=== PATIENT | female | born 1945 | race Caucasian/White ===

== ENCOUNTER 2025-01-14 14:29 | Inpatient (IN) ==
--- NOTE | 2025-01-14 14:44 | Emergency Department Note ---
Impression & Plan Syncope and collapse, Sinus pause, Anemia ED Provider Note NAME: YOHANNES GONSALEZ AGE: 79 SEX: F : 1945 ARRIVES VIA: Ambulance INFORMANT: Patient ED PROVIDER(S): Chester Funez DO CHIEF COMPLAINT: Syncope HPI: Patient is a 79-year-old female who presents to the ER for syncopal episode x 3. She passed out prior to EMSs arrival and then when they got there prior to getting her on the monitor she passed out again. They are able to get her on the monitor and on the ride and she passed out again. They were unable to print out a rhythm strip or an EKG at this time but they did note that she bradycardia down. Patient denies any chest pain or shortness of breath preceding or following this event. Denies any headache or change in vision. No belly pain. No nausea, vomiting, or diarrhea. No dysuria, urgency, or frequency. No other exacerbating or remitting factors. ADDITIONAL HISTORY OBTAINED: Per HPI Chronic Medical/Social Conditions Affecting Care: Per HPI PAST MEDICAL HISTORY:See Below PAST SURGICAL HISTORY:See Below FAMILY HISTORY:See Below SOCIAL HISTORY:See Below HOME MEDICATIONS:See Below ALLERGIES:See Below VITALS:See Below PHYSICAL EXAMINATION: GENERAL: Sitting up in bed, alert, well appearing, well nourished, no distress, non-toxic EYE EXAM: normal conjunctiva. PERRL and EOM's grossly intact. OROPHARYNX: no exudate, no erythema, lips, buccal mucosa, and tongue normal and mucous membranes are moist NECK: supple, no nuchal rigidity, no adenopathy, non-tender LUNGS: Clear to auscultation. Normal chest wall mechanics HEART: no murmurs, S1 normal and S2 normal ABDOMEN: abdomen soft, non-tender, normo-active bowel sounds, no masses, no rebound or guarding. UPPER EXTREMITIES: upper extremities are grossly normal. LOWER EXTREMITIES: No pitting edema. NEURO EXAM: Normal sensorium, cranial nerves II-XII intact, normal speech, no weakness of arms, no weakness of legs. No drift. Finger to nose intact. Gross sensation intact. MEDICAL DECISION MAKING: Patient is a 79-year-old female who presents ER for above-stated complaint. IV was established and blood work was obtained. Labs show mild leukocytosis 11.7. Mild anemia 11.2. BMP with creatinine 1.5. LFTs and bilirubin were unremarkable. Troponin negative. Lipase negative. On the monitor patient appeared to have a sinus pause of about 6 seconds. This was placed on the chart. Did contact cardiology and they were made aware. She remained hemodynamically stable but did become diaphoretic at this time and lightheaded. Patient remained on the pads. Discussed case with the hospitalist for further evaluation management treatment. She was given IV fluids while in the ER. Consults/Care Managements Discussions: Per [facility] Triage Nursing notes reviewed. Limited review of prior medical records performed Vital Signs: reviewed and remarkable for no significant abnormalities Differential diagnosis: Differential diagnosis includes etiologies such as vasovagal event, infection, hypoglycemia, electrolyte abnormalities, cardiac sources, intracerebral event, toxicologic, neurologic, as well as others were entertained. ER treatment provided: See below Diagnostics interpreted by me include EKG and cardiac monitoring as listed below: -Cardiac Monitoring: An order was placed for continuous cardiac monitoring. The monitor shows a rate of 60 with sinus rhythm. -ECG: Sinus rhythm rate of 57 Normal axis No PVCs T wave inversion lead III QTc 492 -Laboratory studies:Interpreted by me as stated above in MDM and shown below. Imaging studies: Xrays: As interpreted by me: Portable AP upright 1 view of the chest shows no focal Lutrate CTs show: none Procedures:none Critical Care: None Past Med/Surg History Problem List (Updated 01/14/25 @ 20:08 by Chester Funez DO) Anemia (Acute) Sinus pause (Acute) GERD (gastroesophageal reflux disease) Hyperlipidemia LDL goal <100 Diabetes mellitus Renal insufficiency Dementia Hypertension Bradycardia with 41-50 beats per minute Syncope and collapse (Acute) Social History Smoking Status: Never smoker Hx Alcohol Use: Yes Alcohol type: wine Hx Substance Use: No Preferred Language: Vietnamese Communication Ability: Effective French Binder Required: No 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 Beliefs: Christianity- asking for preist to visit Current Living Situation: Family Current Living Situation Comment: Lives with Son Augustin Feels Safe at Home: Yes Assistive Devices: Cane Allergies Allergies Allergy/AdvReac Type Severity Reaction Status Date / Time No Known Allergies Allergy Verified 01/14/25 15:03 Home Meds Home Medications Medication Instructions Recorded Confirmed donepezil 5 mg tablet 5 mg PO HS 01/14/25 01/14/25 ferrous sulfate 325 mg (65 mg 325 mg PO DAILY 01/14/25 01/14/25 iron) tablet folic acid 1 mg tablet 1 mg PO DAILY 01/14/25 01/14/25 ibuprofen 200 mg tablet 400 mg PO Q6H PRN Pain 01/14/25 01/14/25 insulin glargine 100 unit/mL (3 18 unit subcut BID 01/14/25 01/14/25 mL) subcutaneous pen (Lantus Solostar U-100 Insulin) lisinopril 10 mg tablet 10 mg PO DAILY 01/14/25 01/14/25 metformin 500 mg tablet 500 mg PO DAILY 01/14/25 01/14/25 metoprolol succinate 50 mg 50 mg PO DAILY 01/14/25 01/14/25 tablet,extended release 24 hr omeprazole 40 mg capsule,delayed 40 mg PO DAILY 01/14/25 01/14/25 release simvastatin 10 mg tablet 10 mg PO DAILY 01/14/25 01/14/25 Results & Data (ED) Vital Signs Vital Signs - 24 hr 01/14/25 14:25 01/14/25 15:05 01/14/25 15:24 Pulse Rate 52 L 51 L 0 L Respiratory Rate 18 Blood Pressure 127/59 L Blood Pressure Mean 81 Pulse Oximetry 95 Oxygen Delivery Method Room Air Sepsis Recent Fever Within 48 Hours No Sepsis New/Unexplained Change in Mental Status No Sepsis Action Taken by Nursing No Action Required 01/14/25 15:36 Pulse Rate 56 L Respiratory Rate Blood Pressure Blood Pressure Mean Pulse Oximetry Oxygen Delivery Method Sepsis Recent Fever Within 48 Hours Sepsis New/Unexplained Change in Mental Status Sepsis Action Taken by Nursing Laboratory Data 01/14/25 14:41 01/14/25 14:41 Lab Results 01/14/25 Range/Units 14:41 WBC 11.71 H (4.8-10.8) K/ul RBC 3.65 L (4.20-5.40) M/uL Hgb 11.2 L (12.0-16.0) g/dl Hct 33.4 L (37.0-47.0) % MCV 91.5 (80.0-100.0) fL MCH 30.7 (25.0-34.0) pg MCHC 33.5 (32.0-36.0) g/dL RDW Std Deviation 45.2 (36.4-46.3) fL RDW Coeff of Ranjit 13.6 (11.5-14.5) % Plt Count 270 (130-400) K/uL MPV 9.7 (9.4-12.4) fL Immature Gran % (Auto) 0.4 % Neut % (Auto) 80.3 % Lymph % (Auto) 16.2 % [place] % (Auto) 2.8 % Eos % (Auto) 0.0 % Baso % (Auto) 0.3 % Neut # (Auto) 9.40 H (1.40-6.50) K/uL Lymph # (Auto) 1.90 (1.20-3.40) K/uL [place] # (Auto) 0.33 (0.11-0.59) K/uL Eos # (Auto) 0.00 (0.00-0.50) K/uL Baso # (Auto) 0.03 (0.00-0.20) K/uL Immature Gran # (Auto) 0.05 (0.01-0.20) K/uL Sodium 136 (136-145) mmol/L Potassium 4.0 (3.5-5.1) mmol/L Chloride 105 (98-107) mmol/L Carbon Dioxide 20 L (21-32) mmol/L Anion Gap 11 (3-11) BUN 52 H (6-23) mg/dl Creatinine 1.52 H (0.6-1.2) mg/dl Est Cr Clr Drug Dosing 25.2 ml/min eGFR 34.89 BUN/Creatinine Ratio 34.2 H (10-20) Glucose 254 H (70-99(Fasting)) mg/dl Calcium 10.4 H (8.6-10.3) mg/dl Total Bilirubin 0.3 (0.2-1.0) mg/dl AST 19 (13-39) U/L ALT 13 (7-52) U/L Alkaline Phosphatase 69 (34-104) U/L Troponin I High Sens 6.1 (0-14) pg/ml Total Protein 7.4 (6.0-8.3) gm/dl Albumin 3.9 (3.4-5.0) gm/dl Globulin 3.5 (2.5-4.0) gm/dl Albumin/Globulin Ratio 1.1 (0.9-2) Lipase 5 L (11-82) U/L Administered Medications Sodium Chloride (Nss) 1,000 mls @ 80 mls/hr IV .[id number] JONNATHAN Stop: 01/15/25 04:44 Last Admin: 01/14/25 16:17 Dose: 80 mls/hr Documented By: CTK Discontinued Medications Sodium Chloride (Nss) 1,000 mls @ 999 mls/hr IV .[id number] ONE Stop: 01/14/25 15:38 Last Infusion: 01/14/25 16:15 Dose: Infused Documented By: Admin: 01/14/25 14:57 Dose: 999 mls/hr Documented By: QGV Imaging Data Radiologist's Impression: Chest X-Ray 01/14/25 14:38 Chest radiograph, one view History: Chest pain Comparison: None Findings: Single AP view of the chest performed. No focal consolidation or pleural effusion. No pneumothorax. The cardiomediastinal silhouette is within normal limits. Normal pulmonary vascularity. No evidence for lymphadenopathy. No visualized bony or soft tissue abnormality. Impression: Normal chest radiograph Electronically signed by Markie Baez 01-14-2025 3:16 PM Discharge Plan Visit Data Chief Complaint: Syncope ED Provider: Chester Funez Discharge Problem: Syncope and collapse, Sinus pause, Anemia Patient Disposition: Admitted As Inpatient Condition: Fair Discharge Instructions Interventions: ED Discharge Assessment Last Done: 01/14/25 17:38 Discharge Problem: Anemia Qualifiers: Anemia type: unspecified type Qualified Code(s): D64.9 - Anemia, unspecified
[2025-01-14 14:56] LABS: Hematocrit (blood only) 33.4 % (37.0-47.0); Hemoglobin 11.2 g/dl (12.0-16.0); Immature Granulocytes # (auto) 0.05 K/uL (0.01-0.20); Immature Granulocytes % (auto) 0.4 %; Mean Corpuscular Hemoglobin 30.7 pg (25.0-34.0); Mean Corpuscular Volume 91.5 fL (80.0-100.0); Platelet Count 270 K/uL (130-400); RDW Standard Deviation 45.2 fL (36.4-46.3); Red Blood Count 3.65 M/uL (4.20-5.40); White Blood Count 11.71 K/ul (4.8-10.8)
[2025-01-14] MEDS: SODIUM CHLORIDE 0.9% 1,000 ML IV ONE (14:57)
[2025-01-14 15:14] LABS: Alanine Aminotransferase 13.0 U/L (7-52); Albumin Globulin Ratio 1.1 (0.9-2); Alkaline Phosphatase 69.0 U/L (34-104); Anion Gap 11.0 (3-11); Bilirubin,Total 0.3 mg/dl (0.2-1.0); Blood Urea Nitrogen 52.0 mg/dl (6-23); Calcium 10.4 mg/dl (8.6-10.3); Carbon Dioxide 20.0 mmol/L (21-32); Chloride 105.0 mmol/L (98-107); Creatinine Clr Calc Pharmacy 25.2 ml/min; Globulin 3.5 gm/dl (2.5-4.0); Glucose 254.0 mg/dl (70-99(Fasting)); Lipase 5.0 U/L (11-82); Potassium 4.0 mmol/L (3.5-5.1); Sodium 136.0 mmol/L (136-145); Total Protein 7.4 gm/dl (6.0-8.3)
--- NOTE | 2025-01-14 15:16 | XRay Report ---
Chest radiograph, one view History: Chest pain Comparison: None Findings: Single AP view of the chest performed. No focal consolidation or pleural effusion. No pneumothorax. The cardiomediastinal silhouette is within normal limits. Normal pulmonary vascularity. No evidence for lymphadenopathy. No visualized bony or soft tissue abnormality. Impression: Normal chest radiograph Electronically signed by Markie Baez 01-14-2025 3:16 PM
--- NOTE | 2025-01-14 16:13 | History & Physical Report ---
Date of Service January 14, 2025 Assessment & Plan (1) Syncope and collapse: (2) Bradycardia with 41-50 beats per minute: (3) Hypertension: (4) Dementia: (5) Renal insufficiency: Plan Patient is a 79-year-old female with past medical history including dementia, iron deficiency, diabetes mellitus, hypertension, GERD, and hyperlipidemia. She presents to the emergency department after having 2 syncopal episodes at a family reunion this afternoon, and 1 episode en route to the hospital. While in the emergency department she has had heart rates in the 30s to 50s. She did take her dosing of metoprolol succinate 50 mg every morning this morning. It is unknown if she has had previous episodes of syncope, however, family was with her today, reports this is the first that they are aware of. Syncope and collapse- Patient had 2 episodes at a family reunion this afternoon, and 1 episode en route to the ED. She was noted to have a rhythm strip which showed significant bradycardia, and had pacer pads placed. The patient will be admitted to telemetry for serial cardiac enzymes, serial EKG's, cardiac rhythm monitoring and a 2-D echocardiogram with Dopplers. Continue pacer pads Hold metoprolol succinate 50 mg daily Consult cardiology Renal insufficiency- Creatinine 1.52 with unknown baseline Hold lisinopril and ibuprofen Place on NSS at 80 mL/h x 1 L Repeat laboratories in a.m. Diabetes mellitus- Change glargine from 18 to 14 units SQ twice daily Hold metformin Placed on Accu-Cheks with NovoLog SSI Dementia- Continue donepezil History of Present Illness Chief Complaint: The patient is brought to the emergency department via EMS, after having syncopal episodes x 2 at a family reunion this afternoon, and then 1 episode en route to the hospital. She did have a rhythm strip which showed significant bradycardia, and has had pacer pads placed. Family was in attendance, reports that this is the first witnessed episode that they are aware of. She denies any head trauma, and any other body parts that may have been injured. He did take her usual dosing of metoprolol succinate 50 mg this morning. He is also noted to have chronic kidney disease, but unknown creatinine at this time. She also reports having taken her usual dose of insulin glargine this morning as well. Primary Care Provider: Manas Myers II, PA-C Patient is a 79-year-old female with past medical history including dementia, iron deficiency, diabetes mellitus, hypertension, GERD, and hyperlipidemia. She presents to the emergency department after having 2 syncopal episodes at a family reunion this afternoon, and 1 episode en route to the hospital. While in the emergency department she has had heart rates in the 30s to 50s. She did take her dosing of metoprolol succinate 50 mg every morning this morning. It is unknown if she has had previous episodes of syncope, however, family was with her today, reports this is the first that they are aware of. Allergies Allergy/AdvReac Type Severity Reaction Status Date / Time No Known Allergies Allergy Verified 01/14/25 15:03 Home Medications Medication Instructions Recorded Confirmed Type donepezil 5 mg tablet 5 mg PO HS 01/14/25 01/14/25 History ferrous sulfate 325 mg (65 mg 325 mg PO DAILY 01/14/25 01/14/25 History iron) tablet folic acid 1 mg tablet 1 mg PO DAILY 01/14/25 01/14/25 History ibuprofen 200 mg tablet 400 mg PO Q6H PRN Pain 01/14/25 01/14/25 History insulin glargine 100 unit/mL (3 18 unit subcut BID 01/14/25 01/14/25 History mL) subcutaneous pen (Lantus Solostar U-100 Insulin) lisinopril 10 mg tablet 10 mg PO DAILY 01/14/25 01/14/25 History metformin 500 mg tablet 500 mg PO DAILY 01/14/25 01/14/25 History metoprolol succinate 50 mg 50 mg PO DAILY 01/14/25 01/14/25 History tablet,extended release 24 hr omeprazole 40 mg capsule,delayed 40 mg PO DAILY 01/14/25 01/14/25 History release simvastatin 10 mg tablet 10 mg PO DAILY 01/14/25 01/14/25 History Past Med/Surg History Problem List (Updated 01/14/25 @ 16:09 by Gianluca Ferraro MD) GERD (gastroesophageal reflux disease) Hyperlipidemia LDL goal <100 Diabetes mellitus Renal insufficiency Dementia Hypertension Bradycardia with 41-50 beats per minute Syncope and collapse Social History Smoking Status: Never smoker Preferred Language: [place]se Feels Safe at Home: Yes Review of Systems Review of Systems: The patient denies chest pain, palpitations, shortness of breath, dyspnea on exertion, cough, lower extremity swelling, sore throat, fevers, chills, sweats, weight change, fatigue, nausea, vomiting, diarrhea , constipation, abdominal pain, pelvic pain, blood in urine or stool, dysuria, urinary frequency or urgency, lightheadedness, dizziness, headache, rash, abnormal bruising or bleeding, imbalance, focal weakness, numbness or tingling in arms or legs, generalized arthralgias or myalgias, back or neck pain, or night sweats. The review of systems is otherwise negative other than for that already noted above, and at least 10 systems have been reviewed. Physical Exam Physical Exam: The patient is awake, alert and oriented 3, well developed and well nourished, normocephalic and atraumatic, lying in bed and in no acute distress. HEENT--PERRL, EOMI, mucous membranes and oropharynx mildly dry. Neck--supple. No JVD. No bruits. Thyroid normal, trachea midline, no adenopathy. Heart--bradycardia with occasional premature contractions Lungs--clear bilaterally, no respiratory distress, no accessory muscle use. Abdomen--normal bowel sounds and soft. Nontender. Nondistended 5. Extremities--no cyanosis or clubbing. No edema. There are good distal pulses b/l. Dermatologic--normal skin turgor, normal color, no abnormal lymph nodes, no rash. Neurologic--cranial nerves II through XII grossly intact. Rheumatologic--normal range of motion. Psychiatric--normal affect. Results & Data Results & Data Vital Signs (Past 12 Hours) Vital Signs Pulse Resp BP Pulse Ox O2 Del Method 01/14/25 15:36 56 L 01/14/25 15:24 0 L 01/14/25 15:05 51 L 01/14/25 14:25 52 L 18 127/59 L 95 Room Air Laboratory Results Laboratory Results WBC 11.71 K/ul (4.8-10.8) H 01/14/25 14:41 RBC 3.65 M/uL (4.20-5.40) L 01/14/25 14:41 Hgb 11.2 g/dl (12.0-16.0) L 01/14/25 14:41 Hct 33.4 % (37.0-47.0) L 01/14/25 14:41 MCV 91.5 fL (80.0-100.0) 01/14/25 14:41 MCH 30.7 pg (25.0-34.0) 01/14/25 14:41 MCHC 33.5 g/dL (32.0-36.0) 01/14/25 14:41 RDW Std Deviation 45.2 fL (36.4-46.3) 01/14/25 14:41 RDW Coeff of Ranjit 13.6 % (11.5-14.5) 01/14/25 14:41 Plt Count 270 K/uL (130-400) 01/14/25 14:41 MPV 9.7 fL (9.4-12.4) 01/14/25 14:41 Immature Gran % (Auto) 0.4 % 01/14/25 14:41 Neut % (Auto) 80.3 % 01/14/25 14:41 Lymph % (Auto) 16.2 % 01/14/25 14:41 [place] % (Auto) 2.8 % 01/14/25 14:41 Eos % (Auto) 0.0 % 01/14/25 14:41 Baso % (Auto) 0.3 % 01/14/25 14:41 Neut # (Auto) 9.40 K/uL (1.40-6.50) H 01/14/25 14:41 Lymph # (Auto) 1.90 K/uL (1.20-3.40) 01/14/25 14:41 [place] # (Auto) 0.33 K/uL (0.11-0.59) 01/14/25 14:41 Eos # (Auto) 0.00 K/uL (0.00-0.50) 01/14/25 14:41 Baso # (Auto) 0.03 K/uL (0.00-0.20) 01/14/25 14:41 Immature Gran # (Auto) 0.05 K/uL (0.01-0.20) 01/14/25 14:41 Sodium 136 mmol/L (136-145) 01/14/25 14:41 Potassium 4.0 mmol/L (3.5-5.1) 01/14/25 14:41 Chloride 105 mmol/L (98-107) 01/14/25 14:41 Carbon Dioxide 20 mmol/L (21-32) L 01/14/25 14:41 Anion Gap 11 (3-11) 01/14/25 14:41 BUN 52 mg/dl (6-23) H 01/14/25 14:41 Creatinine 1.52 mg/dl (0.6-1.2) H 01/14/25 14:41 Est Cr Clr Drug Dosing 25.2 ml/min 01/14/25 14:41 eGFR 34.89 01/14/25 14:41 BUN/Creatinine Ratio 34.2 (10-20) H 01/14/25 14:41 Glucose 254 mg/dl (70-99(Fasting)) H 01/14/25 14:41 Calcium 10.4 mg/dl (8.6-10.3) H 01/14/25 14:41 Total Bilirubin 0.3 mg/dl (0.2-1.0) 01/14/25 14:41 AST 19 U/L (13-39) 01/14/25 14:41 ALT 13 U/L (7-52) 01/14/25 14:41 Alkaline Phosphatase 69 U/L (34-104) 01/14/25 14:41 Troponin I High Sens 6.1 pg/ml (0-14) 01/14/25 14:41 Total Protein 7.4 gm/dl (6.0-8.3) 01/14/25 14:41 Albumin 3.9 gm/dl (3.4-5.0) 01/14/25 14:41 Globulin 3.5 gm/dl (2.5-4.0) 01/14/25 14:41 Albumin/Globulin Ratio 1.1 (0.9-2) 01/14/25 14:41 Lipase 5 U/L (11-82) L 01/14/25 14:41 Impressions Chest X-Ray 01/14/25 14:38 Chest radiograph, one view History: Chest pain Comparison: None Findings: Single AP view of the chest performed. No focal consolidation or pleural effusion. No pneumothorax. The cardiomediastinal silhouette is within normal limits. Normal pulmonary vascularity. No evidence for lymphadenopathy. No visualized bony or soft tissue abnormality. Impression: Normal chest radiograph Electronically signed by Markie Baez 01-14-2025 3:16 PM Code Status & VTE Plan Code Status Full code VTE Prophylaxis Plan VTE Prophylaxis will be ordered: Yes PG Care Time/CCT Total # of Minutes Spent Total Time Spent with Patient: Total time spent is greater than 50% in coordination of care (as documented) at patient's floor/unit and/or counseling patient: Coding Level of Care Code 41950 INT INP/OBS CARE 3/75MIN Diagnoses Syncope and collapse R55 Bradycardia with 41-50 beats per minute R00.1 Hypertension I10 Dementia F03.90 Renal insufficiency N28.9
[2025-01-14] MEDS: SODIUM CHLORIDE 0.9% 1,000 ML IV SCH (16:17)
[2025-01-14] MEDS ORDERED: GLUCOSE 40% GEL 15 GM TUBE PO PRN (18:02)
[2025-01-14] MEDS ORDERED: GLUCOSE 10 TAB/TUBE PO PRN (18:02)
[2025-01-14] MEDS ORDERED: DEXTROSE 50% 50 ML SYRINGE IV PRN (18:02)
[2025-01-14] MEDS ORDERED: GLUCAGON FOR INJ 1 MG VIAL SQ PRN (18:02)
[2025-01-14] MEDS ORDERED: CARBOHYDRATES FOR HYPOGLYCEMIA PO PRN (18:02)
[2025-01-14] MEDS: INSULIN ASPART PER UNIT CHARGE SC SCH (20:17)
[2025-01-14] MEDS: LANTUS PER UNIT CHARGE SC SCH (20:17)
[2025-01-14] MEDS ORDERED: LANTUS PER UNIT CHARGE SC SCH (21:00)
[2025-01-14] MEDS ORDERED: NON-FORMULARY MEDICATION (Insulin Glargine [Lantus Solostar U-100 Insulin] 100 unit/mL (3 SQ SCH (21:00)
[2025-01-14] MEDS ORDERED: DONEPEZIL HCL 5 MG TAB PO SCH (21:00)
[2025-01-15 06:07] LABS: Hematocrit (blood only) 27.8 % (37.0-47.0); Hemoglobin 9.3 g/dl (12.0-16.0); Mean Corpuscular Hemoglobin 30.9 pg (25.0-34.0); Mean Corpuscular Volume 92.4 fL (80.0-100.0); Platelet Count 230 K/uL (130-400); RDW Standard Deviation 46.1 fL (36.4-46.3); Red Blood Count 3.01 M/uL (4.20-5.40); White Blood Count 11.67 K/ul (4.8-10.8)
[2025-01-15 06:25] LABS: Alanine Aminotransferase 11.0 U/L (7-52); Albumin Globulin Ratio 1.4 (0.9-2); Alkaline Phosphatase 54.0 U/L (34-104); Anion Gap 6.0 (3-11); Bilirubin,Total 0.3 mg/dl (0.2-1.0); Blood Urea Nitrogen 37.0 mg/dl (6-23); Calcium 9.3 mg/dl (8.6-10.3); Carbon Dioxide 24.0 mmol/L (21-32); Chloride 111.0 mmol/L (98-107); Creatinine Clr Calc Pharmacy 31.4 ml/min; Globulin 2.5 gm/dl (2.5-4.0); Glucose 81.0 mg/dl (70-99(Fasting)); Magnesium 1.0 mg/dl (1.7-2.4); Potassium 3.5 mmol/L (3.5-5.1); Sodium 141.0 mmol/L (136-145); Total Protein 6.0 gm/dl (6.0-8.3)
[2025-01-15] MEDS: MAGNESIUM SULFATE / D5W 1 GM/100 ML BAG IV SCH (06:46)
[2025-01-15 07:04] LABS: Immature Granulocytes # (auto) 0.04 K/uL (0.01-0.20); Immature Granulocytes % (auto) 0.3 %
[2025-01-15 07:24] LABS: Hemoglobin A1C 6.6 % (4.5-5.6)
[2025-01-15] MEDS: POTASSIUM CHLORIDE CRTAB 20 MEQ TABCR PO STA (08:24)
[2025-01-15] MEDS: FOLIC ACID 1 MG TAB PO SCH (08:25)
[2025-01-15] MEDS: FERROUS SULFATE 325 MG TAB PO SCH (08:26)
[2025-01-15] MEDS: SIMVASTATIN 10 MG TAB PO SCH (08:26)
[2025-01-15] MEDS ORDERED: PHARMACY GLYCEMIC MGMT CONSULT PRN (09:14)
[2025-01-15] MEDS ORDERED: POTASSIUM CHLORIDE CRTAB 20 MEQ TABCR PO STA (09:35)
--- NOTE | 2025-01-15 10:57 | Cardiology Consultation ---
Date of Consultation January 15, 2025 Assessment & Plan (1) Syncopal episodes: (2) Sinus arrest: (3) Anemia: (4) Hyperlipidemia LDL goal <100: (5) Diabetes mellitus: (6) Renal insufficiency: Plan She has been off BB x 24 hours and still having pauses and episodes of sinus arrest. Will given overnight again to see if improves, however I suspect she will require PPM. I txt Dr. Ruiz to make him aware of consult and possible PPM. The family also expressed interest in f/u in [place] post DC. I would be happy to have her follow up with my prior group-[facility] [place]-either Dr. Adrian Larson or Dr. Dc Diamond are both EP in that group. . Thank you for allowing me participate in her care. History of Present Illness Reason for Consultation: syncope Attending Physician: Dc Ji PCP Dr. Hakeem [facility] History of Present Illness Patient is a 79-year-old female with past medical history including dementia, iron deficiency, diabetes mellitus, hypertension, GERD, and hyperlipidemia. She lives in [place] and normally follows with Dr. Hakeem Myers. As far as she and her family are aware, she has not had prior CV work up. She presents to the emergency department after having 2 syncopal episodes at a family reunion this afternoon, and 1 episode en route to the hospital. While in the emergency department she has had heart rates in the 30s to 50s. Significant pauses were also noted. Overnight, she had several episodes of asystole-the longest was approx 15 seconds while she was in bed earlier this am. She did take her dosing of metoprolol succinate 50 mg on the . She was in [place] at a [facility] when this occurred. According to the patients son, she has had several, they think perhaps 3 episodes of syncope in the last year-several have been while in congregational. She has not had injury with them. She is fairly sedantary, walks using a walker/cane due to her prior hx of lymphoma as well as brain tumor-for which she underwent chemo and XRT 12 years ago. Allergies Allergy/AdvReac Type Severity Reaction Status Date / Time No Known Allergies Allergy Verified 01/14/25 15:03 Home Medications Medication Instructions Recorded Confirmed Type donepezil 5 mg tablet 5 mg PO HS 01/14/25 01/14/25 History ferrous sulfate 325 mg (65 mg 325 mg PO DAILY 01/14/25 01/14/25 History iron) tablet folic acid 1 mg tablet 1 mg PO DAILY 01/14/25 01/14/25 History ibuprofen 200 mg tablet 400 mg PO Q6H PRN Pain 01/14/25 01/14/25 History insulin glargine 100 unit/mL (3 18 unit subcut BID 01/14/25 01/14/25 History mL) subcutaneous pen (Lantus Solostar U-100 Insulin) lisinopril 10 mg tablet 10 mg PO DAILY 01/14/25 01/14/25 History metformin 500 mg tablet 500 mg PO DAILY 01/14/25 01/14/25 History metoprolol succinate 50 mg 50 mg PO DAILY 01/14/25 01/14/25 History tablet,extended release 24 hr omeprazole 40 mg capsule,delayed 40 mg PO DAILY 01/14/25 01/14/25 History release simvastatin 10 mg tablet 10 mg PO DAILY 01/14/25 01/14/25 History Patient History Social History Smoking Status: Never smoker Hx Alcohol Use: Yes Alcohol type: wine Hx Substance Use: No Preferred Language: Marshallese Communication Ability: Effective Male Model Required: No Beliefs That Will Affect Care: Tenriism Tenriism Beliefs: Anabaptism- asking for preist to visit Current Living Situation: Family Current Living Situation Comment: Lives with Son Augustin Feels Safe at Home: Yes Assistive Devices: Cane Review of Systems Review of Systems: All systems reviewed & are unremarkable except as noted in HPI & below Physical Exam Physical Exam: AAO x 3; not clear on all details of her hx; family provided info Respiratory: normal respiratory effort, lungs clear to auscultation Cardiovascular: RRR, no murmur, no edema Results & Data Vital Signs (Past 12 Hours) Vital Signs Temp Pulse Pulse Resp BP Pulse Ox O2 Del Method 01/15/25 08:00 36.8 C 58 L 18 94/47 L 97 Room Air 01/15/25 07:33 Room Air 01/15/25 07:17 48 L 01/15/25 04:26 50 L 01/15/25 02:57 36.8 C 53 L 20 93/43 L 99 Room Air 01/14/25 23:46 50 L 01/14/25 23:09 36.9 C 50 L 18 108/68 99 Room Air Laboratory Results Abnormal lab results 01/14/25 01/14/25 01/14/25 Range/Units 14:41 18:19 20:08 WBC 11.71 H (4.8-10.8) K/ul RBC 3.65 L (4.20-5.40) M/uL Hgb 11.2 L (12.0-16.0) g/dl Hct 33.4 L (37.0-47.0) % Neut # (Auto) 9.40 H (1.40-6.50) K/uL Lymph # (Auto) (1.20-3.40) K/uL [place] # (Auto) (0.11-0.59) K/uL Chloride (98-107) mmol/L Carbon Dioxide 20 L (21-32) mmol/L BUN 52 H (6-23) mg/dl Creatinine 1.52 H (0.6-1.2) mg/dl BUN/Creatinine Ratio 34.2 H (10-20) Glucose 254 H (70-99(Fasting)) mg/dl POC Glucose 209 H 235 H (70-99) mg/dl Hemoglobin A1c (4.5-5.6) % Calcium 10.4 H (8.6-10.3) mg/dl Magnesium (1.7-2.4) mg/dl Lipase 5 L (11-82) U/L 01/15/25 01/15/25 01/15/25 Range/Units 05:37 07:31 09:22 WBC 11.67 H (4.8-10.8) K/ul RBC 3.01 L (4.20-5.40) M/uL Hgb 9.3 L (12.0-16.0) g/dl Hct 27.8 L (37.0-47.0) % Neut # (Auto) (1.40-6.50) K/uL Lymph # (Auto) 5.25 H (1.20-3.40) K/uL [place] # (Auto) 0.75 H (0.11-0.59) K/uL Chloride 111 H (98-107) mmol/L Carbon Dioxide (21-32) mmol/L BUN 37 H (6-23) mg/dl Creatinine 1.22 H D (0.6-1.2) mg/dl BUN/Creatinine Ratio 30.3 H (10-20) Glucose (70-99(Fasting)) mg/dl POC Glucose 100 H 137 H (70-99) mg/dl Hemoglobin A1c 6.6 H (4.5-5.6) % Calcium (8.6-10.3) mg/dl Magnesium 1.0 L (1.7-2.4) mg/dl Lipase (11-82) U/L 01/15/25 Range/Units 11:10 WBC (4.8-10.8) K/ul RBC (4.20-5.40) M/uL Hgb (12.0-16.0) g/dl Hct (37.0-47.0) % Neut # (Auto) (1.40-6.50) K/uL Lymph # (Auto) (1.20-3.40) K/uL [place] # (Auto) (0.11-0.59) K/uL Chloride (98-107) mmol/L Carbon Dioxide (21-32) mmol/L BUN (6-23) mg/dl Creatinine (0.6-1.2) mg/dl BUN/Creatinine Ratio (10-20) Glucose (70-99(Fasting)) mg/dl POC Glucose 106 H (70-99) mg/dl Hemoglobin A1c (4.5-5.6) % Calcium (8.6-10.3) mg/dl Magnesium (1.7-2.4) mg/dl Lipase (11-82) U/L Medications Administered Current Inpatient Medications Acetaminophen (Acetaminophen 325 Mg Tab) 650 mg PO Q4H PRN PRN Reason: Pain or Fever Stop: 02/13/25 18:01 Dextrose (Dextrose 50% 50 Ml Syringe) 25 - 50 ml IV UD PRN; Protocol PRN Reason: Hypoglycemia Protocol Stop: 02/13/25 18:01 Ferrous Sulfate (Ferrous Sulfate 325 Mg Tab) 325 mg PO DAILY JONNATHAN Stop: 02/14/25 08:59 Last Admin: 01/15/25 08:26 Dose: 325 mg Folic Acid (Folic Acid 1 Mg Tab) 1 mg PO DAILY JONNATHAN Stop: 02/14/25 08:59 Last Admin: 01/15/25 08:25 Dose: 1 mg Glucagon (Glucagon For Inj 1 Mg Vial) 1 mg SQ UD PRN; Protocol PRN Reason: Hypoglycemia Protocol Stop: 02/13/25 18:01 Glucose (Glucose 40% Gel 15 Gm Tube) 15 - 30 gm PO UD PRN; Protocol PRN Reason: Hypoglycemia Protocol Stop: 02/13/25 18:01 Glucose (Glucose 10 Tab/Tube) 4 - 8 tab PO UD PRN; Protocol PRN Reason: Hypoglycemia Protocol Stop: 02/13/25 18:01 Magnesium Sulfate/Dextrose (Magnesium Sulfate / D5w) 1 gm in 100 mls @ 50 mls/hr IV Q2H JONNATHAN Stop: 01/15/25 16:44 Last Admin: 01/15/25 10:18 Dose: 50 mls/hr Insulin Aspart (Insulin Aspart Per Unit Charge) 0 units SC ACHS JONNTAHAN Stop: 02/13/25 20:59 Last Admin: 01/15/25 07:50 Dose: 6 units Lisinopril (Lisinopril 10 Mg Tab) 10 mg PO DAILY JONNATHAN Stop: 02/14/25 08:59 Metoprolol Succinate (Metoprolol Succ 50mg Ext Rel Tab) 50 mg PO DAILY JONNATHAN Stop: 02/14/25 08:59 Miscellaneous (Carbohydrates For Hypoglycemia ) 15 - 30 gm PO UD PRN PRN Reason: Hypoglycemia Protocol Stop: 02/13/25 18:01 Miscellaneous Information (Pharmacy Glycemic Mgmt Consult) 1 each N/A UD PRN; Protocol PRN Reason: Consult Stop: 02/14/25 09:13 Pantoprazole Sodium (Pantoprazole 40 Mg Tab) 40 mg PO DAILY JONNATHAN Stop: 02/14/25 08:59 Last Admin: 01/15/25 08:25 Dose: 40 mg Simvastatin (Simvastatin 10 Mg Tab) 10 mg PO DAILY JONNATHAN Stop: 02/14/25 08:59 Last Admin: 01/15/25 08:26 Dose: 10 mg ECG Additional Comments: Sinus karen, NS-T wave, low voltage (3) Anemia Anemia type: unspecified type Qualified Code(s): D64.9 - Anemia, unspecified
--- NOTE | 2025-01-15 12:55 | Hospitalist Progress Note ---
Date of Service January 15, 2025 Assessment & Plan (1) Syncope and collapse: (2) Bradycardia with 41-50 beats per minute: (3) Hypertension: (4) Dementia: (5) Renal insufficiency: Plan Patient is a 79-year-old female with past medical history including dementia, iron deficiency, diabetes mellitus, hypertension, GERD, and hyperlipidemia. She presents to the emergency department on 01/14/2025 after having 2 syncopal episodes at a family reunion and 1 episode en route to the hospital. While in the emergency department she has had heart rates in the 30s to 50s. #Syncope & Collapse with 3 episodes of syncope on 01/14 CXR negative EKG w/ sinus bradycardia Pacer pads placed Cardiology consulted, appreciate recommendations Hold Lisinopril & metoprolol. Continue to monitor on telemetry #Renal insufficiency Creatinine 1.52 on admission w/ improvement to 1.22 on AM labs Unknown baseline Lisinopril on hold, Avoid nephrotoxic medications s/p IVF AM BMP #hypomagnesemia Mag low at 1.0 - s/p 5 bags IV mag AM mag, BMP, & phosphorous #Type 2 Diabetes A1c 01/15: 6.6% - on 18 units Lantus BID & Metformin outpatient. Hold glargine + metformin Placed on Novolog SSI Pharmacy consulted to aide with glycemic needs #Dementia- Continue donepezil DVT prophylaxis: SCD's Code: full Admission and Anticipated Discharge Date Admission Date: January 14, 2025 Subjective Alice seen and examined this morning. States she does not remember why she is in the hospital. Denied CP or SOB. Physical Exam Physical Exam: The patient is awake, alert and oriented 3, well developed and well nourished, normocephalic and atraumatic, lying in bed and in no acute distress. HEENT--PERRL, EOMI, mucous membranes and oropharynx mildly dry. Heart--bradycardia Lungs--clear bilaterally, no respiratory distress, no accessory muscle use. Extremities--no cyanosis or clubbing. No edema Psychiatric--pleasant& confused Results & Data Results & Data Vital Signs (Past 12 Hours) Vital Signs Temp Pulse Pulse Resp BP Pulse Ox O2 Del Method 01/15/25 11:55 36.7 C 60 20 106/43 L 95 Room Air 01/15/25 08:00 36.8 C 58 L 18 94/47 L 97 Room Air 01/15/25 07:33 Room Air 01/15/25 07:17 48 L 01/15/25 04:26 50 L 01/15/25 02:57 36.8 C 53 L 20 93/43 L 99 Room Air PG Care Time/CCT Total # of Minutes Spent Total Time Spent with Patient: Total time spent is greater than 50% in coordination of care (as documented) at patient's floor/unit and/or counseling patient: Coding Level of Care Code 51969 SUB INP/OBS CARE 2/35MIN Diagnoses Syncope and collapse R55 Bradycardia with 41-50 beats per minute R00.1 Hypertension I10 Dementia F03.90 Renal insufficiency N28.9
--- NOTE | 2025-01-15 13:52 | Pharmacy Report ---
Pharmacy Glycemic Short Note 2 - Date of Service January 15, 2025 - Glycemic Short BSG Results (Last 24 hours): 01/14/25 01/14/25 01/14/25 14:41 18:19 20:08 Glucose 254 H POC Glucose 209 H 235 H 01/15/25 01/15/25 01/15/25 05:37 07:31 09:22 Glucose 81 POC Glucose 100 H 137 H 01/15/25 11:10 Glucose POC Glucose 106 H OUTPATIENT ANTIDIABETIC REGIMEN: * Lantus 18 units SC BID * Metformin 500 mg PO daily HbA1c: 6.6% (01/15/25) ASSESSMENT: * DR is a 79 year old female who presented to ED on 01/14/25 following multiple syncopal episodes * Initial insulin regimen ordered by hospitalist included Lantus 14 units SC BID (received 2 doses), Novolog CF of 25 and carb ratio of 10, and metformin 500 mg PO daily * Pharmacy consulted for glycemic management on hospital day 1, initial changes: * Metformin discontinued * Basal insulin discontinued * Novolog loosened * Blood sugars of 100 and 106 mg/dL today - will hold off on further basal insulin today PLAN FOR INPATIENT GLYCEMIC CONTROL: * Hold outpatient oral diabetes medications (did receive metformin already today on 01/15) * Basal insulin * Lantus 14 units SC this AM, d/c ongoing basal * Reassess in AM * Bolus insulin * NovoLog per scale ACHS or Q6hrs while NPO * Goal Range: Low 120 mg/dL - High 160 mg/dL * Correction Factor: 40 mg/dL/unit * Nutritional / Prandial insulin per carb ratio of 1 unit per 13 grams CHO consumed
[2025-01-16 06:51] LABS: Hematocrit (blood only) 29.4 % (37.0-47.0); Hemoglobin 9.8 g/dl (12.0-16.0); Immature Granulocytes # (auto) 0.03 K/uL (0.01-0.20); Immature Granulocytes % (auto) 0.3 %; Mean Corpuscular Hemoglobin 30.4 pg (25.0-34.0); Mean Corpuscular Volume 91.3 fL (80.0-100.0); Platelet Count 256 K/uL (130-400); RDW Standard Deviation 46.2 fL (36.4-46.3); Red Blood Count 3.22 M/uL (4.20-5.40); White Blood Count 9.92 K/ul (4.8-10.8)
[2025-01-16 07:13] LABS: Alanine Aminotransferase 14.0 U/L (7-52); Albumin Globulin Ratio 1.3 (0.9-2); Alkaline Phosphatase 54.0 U/L (34-104); Anion Gap 5.0 (3-11); Bilirubin,Total 0.3 mg/dl (0.2-1.0); Blood Urea Nitrogen 24.0 mg/dl (6-23); Calcium 9.6 mg/dl (8.6-10.3); Carbon Dioxide 24.0 mmol/L (21-32); Chloride 112.0 mmol/L (98-107); Creatinine Clr Calc Pharmacy 32.7 ml/min; Globulin 2.7 gm/dl (2.5-4.0); Glucose 84.0 mg/dl (70-99(Fasting)); Magnesium 1.9 mg/dl (1.7-2.4); Potassium 4.3 mmol/L (3.5-5.1); Sodium 141.0 mmol/L (136-145); Total Protein 6.1 gm/dl (6.0-8.3)
--- NOTE | 2025-01-16 08:11 | Electrocardiogram Report ---
Test Reason : Blood Pressure : */* mmHG Vent. Rate : 58 BPM Atrial Rate : 58 BPM P-R Int : 162 ms QRS Dur : 74 ms QT Int : 424 ms P-R-T Axes : 73 3 45 degrees QTcB Int : 416 ms Sinus bradycardia Low voltage QRS Borderline ECG When compared with ECG [id number] 05:26,(unconfirmed)in comparison with previous ekg, no change Confirmed by Sherie Wright ([id number]) on 01/16/2025 8:11:00 AM Referred By: REFERRED SELF Confirmed By: Sherie Wright
--- NOTE | 2025-01-16 10:24 | Electrocardiogram Report ---
Test Reason : Blood Pressure : */* mmHG Vent. Rate : 57 BPM Atrial Rate : * BPM P-R Int : * ms QRS Dur : 92 ms QT Int : 506 ms P-R-T Axes : * -12 -2 degrees QTcB Int : 492 ms Sinus bradycardia Premature supraventricular complexes Low voltage QRS Abnormal ECG No previous ECGs available Confirmed by Jonah Hicks ([id number]) on 01/16/2025 10:24:10 AM Referred By: REFERRED SELF Confirmed By: Jonah Hicks
--- NOTE | 2025-01-16 10:36 | Electrocardiogram Report ---
Test Reason : Blood Pressure : */* mmHG Vent. Rate : 53 BPM Atrial Rate : 53 BPM P-R Int : 174 ms QRS Dur : 80 ms QT Int : 428 ms P-R-T Axes : 62 0 25 degrees QTcB Int : 401 ms Sinus bradycardia Premature atrial complexes Low voltage QRS Nonspecific T wave abnormality Abnormal ECG When compared with ECG of 14-Jan-2025 14:39, (unconfirmed) Nonspecific T wave abnormality, worse in Anterolateral leads QT has shortened Confirmed by Jonah Hicks ([id number]) on 01/16/2025 10:36:10 AM Referred By: REFERRED SELF Confirmed By: Jonah Hicks
[2025-01-16] MEDS: ACETAMINOPHEN 325 MG TAB PO PRN (12:30)
[2025-01-16] MEDS: NYSTATIN POWDER 15GM BTL EXT PRN (12:37)
--- NOTE | 2025-01-16 12:45 | Hospitalist Progress Note ---
Date of Service January 16, 2025 Assessment & Plan (1) Syncope and collapse: (2) Bradycardia with 41-50 beats per minute: (3) Hypertension: (4) Dementia: (5) Renal insufficiency: Plan Patient is a 79-year-old female with past medical history including dementia, iron deficiency, diabetes mellitus, hypertension, GERD, and hyperlipidemia. She presents to the emergency department on 01/14/2025 after having 2 syncopal episodes at a family reunion and 1 episode en route to the hospital. While in the emergency department she has had heart rates in the 30s to 50s. CXR negative. EKG with sinus bradycardia. #Syncope & Collapse - with 3 episodes of syncope on 01/14 - Echo on 01/18 with EF 55-60%, left ventricle is normal size, normal left ventricle wall thickness, left ventricular wall motion is normal, grade 1 diastolic dysfunction, mild aortic valve sclerosis without significant aortic valve stenosis - Pacer pads placed - Cardiology consulted - EP gameplay engineer Dr. Ruiz consulted for possible PPM placement - Patient can follow-up with [facility] (either Dr. Adrian Larson or Dr. Dc Diamond are both EP in that group: [phone]) - Hold Lisinopril & metoprolol - Continue to monitor on telemetry - PT/OT consulted #Renal insufficiency, possible JOSELIN - Unknown baseline. s/p IVF - Creatinine 1.52 on admission with improvement to 1.29 on AM labs - Lisinopril on hold, Avoid nephrotoxic medications - AM BMP #Hypomagnesemia - low at 1.0, s/p 5 bags IV mag - Now repleted at 1.9 - AM mag, BMP, & phosphorous #Yeast infection under left breast - Topical nystatin powder as needed to affected skin folds #Type 2 Diabetes - A1c 01/15: 6.6% - on 18 units Lantus BID & Metformin outpatient. - Hold glargine + metformin while inpatient - Pharmacy consulted to aide with glycemic needs #Dementia- Continue donepezil DVT prophylaxis: SCD's Code: full Ordered Nystatin powder Consulted PT/OT Admission and Anticipated Discharge Date Admission Date: January 14, 2025 Subjective Patient seen and evaluated at bedside. She reports a mild headache, which she attributes to her n.p.o. status. She denies lightheadedness, dizziness, chest pain, palpitations, shortness of breath. She is awaiting evaluation from EP gameplay engineer regarding pacemaker placement. No additional complaints or concerns at this time. Telemetry reviewed: NSR 50s60s with PACs, no pauses noted. Review of Systems Review of Systems: All systems reviewed & are unremarkable except as noted in Subjective Constitutional: + Headache Physical Exam Physical Exam: General: No acute distress, nondiaphoretic, well-developed, well-nourished. Skin: Warm, dry. No peripheral edema noted. Erythematous rash consistent with yeast infection noted under left breast. Cardiac: Regular rate and rhythm without murmurs gallops or rubs. Pulm: Clear to auscultation bilaterally without wheezes, rales or rhonchi. Normal respiratory effort. 97% on room air. Abdominal: Soft, nontender, nondistended. Bowel sounds present. Neuro: A&O x3 but wifty at times. No focal neurological deficits. Results & Data Results & Data Vital Signs (Past 12 Hours) Vital Signs Temp Pulse Pulse Resp BP Pulse Ox O2 Del Method 01/16/25 11:46 98.1 F 60 18 134/72 97 Room Air 01/16/25 08:00 97.9 F 58 L 16 135/63 96 Room Air 01/16/25 07:36 53 L 01/16/25 07:36 Room Air 01/16/25 04:25 98.1 F 54 L 18 128/64 95 Room Air Laboratory Results Reviewed CBC with differential Reviewed CMP PG Care Time/CCT Total # of Minutes Spent Total Time Spent with Patient: Total time spent is greater than 50% in coordination of care (as documented) at patient's floor/unit and/or counseling patient: Coding Level of Care Code 87236 SUB INP/OBS CARE 3/50MIN Diagnoses Syncope and collapse R55 Bradycardia with 41-50 beats per minute R00.1 Hypertension I10 Dementia F03.90 Renal insufficiency N28.9
--- NOTE | 2025-01-16 13:44 | Pharmacy Report ---
Pharmacy Glycemic Short Note 2 - Date of Service January 16, 2025 - Glycemic Short BSG Results (Last 24 hours): 01/15/25 01/15/25 01/15/25 14:23 16:10 19:46 Glucose POC Glucose 162 H 160 H 117 H 01/16/25 01/16/25 01/16/25 05:55 07:27 11:14 Glucose 84 POC Glucose 86 96 OUTPATIENT ANTIDIABETIC REGIMEN: * Lantus 18 units SC BID * Metformin 500 mg PO daily HbA1c: 6.6% (01/15/25) ASSESSMENT: 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 who presented to ED on 01/14/25 following multiple syncopal episodes * Initial insulin regimen ordered by hospitalist included Lantus 14 units SC BID (received 2 doses), Novolog CF of 25 and carb ratio of 10, and metformin 500 mg PO daily * Pharmacy consulted for glycemic management on hospital day 1, initial changes: * Metformin discontinued * Basal insulin discontinued * Novolog loosened * Blood sugars of 100 and 106 mg/dL today - will hold off on further basal insulin today PLAN FOR INPATIENT GLYCEMIC CONTROL: * Hold outpatient oral diabetes medications (did receive metformin already today on 01/15) * Basal insulin * Lantus 0/6/12 units per scale * Bolus insulin * NovoLog per scale ACHS or Q6hrs while NPO * Goal Range: Low 120 mg/dL - High 160 mg/dL * Correction Factor: 40 mg/dL/unit * Nutritional / Prandial insulin per carb ratio of 1 unit per 13 grams CHO consumed
[2025-01-16] MEDS ORDERED: LANTUS PER UNIT CHARGE SC SCH (21:00)
[2025-01-16] MEDS: LANTUS PER UNIT CHARGE SC SCH (21:01)
[2025-01-17 05:55] LABS: Hematocrit (blood only) 31.5 % (37.0-47.0); Hemoglobin 10.6 g/dl (12.0-16.0); Immature Granulocytes # (auto) 0.03 K/uL (0.01-0.20); Immature Granulocytes % (auto) 0.3 %; Mean Corpuscular Hemoglobin 30.8 pg (25.0-34.0); Mean Corpuscular Volume 91.6 fL (80.0-100.0); Platelet Count 250 K/uL (130-400); RDW Standard Deviation 46.3 fL (36.4-46.3); Red Blood Count 3.44 M/uL (4.20-5.40); White Blood Count 9.78 K/ul (4.8-10.8)
[2025-01-17 06:07] LABS: Alanine Aminotransferase 12.0 U/L (7-52); Albumin Globulin Ratio 1.1 (0.9-2); Alkaline Phosphatase 62.0 U/L (34-104); Anion Gap 6.0 (3-11); Bilirubin,Total 0.3 mg/dl (0.2-1.0); Blood Urea Nitrogen 22.0 mg/dl (6-23); Calcium 9.8 mg/dl (8.6-10.3); Carbon Dioxide 24.0 mmol/L (21-32); Chloride 108.0 mmol/L (98-107); Creatinine Clr Calc Pharmacy 29.5 ml/min; Globulin 3.0 gm/dl (2.5-4.0); Glucose 99.0 mg/dl (70-99(Fasting)); Magnesium 1.5 mg/dl (1.7-2.4); Potassium 4.4 mmol/L (3.5-5.1); Sodium 138.0 mmol/L (136-145); Total Protein 6.3 gm/dl (6.0-8.3)
[2025-01-17] MEDS: INSULIN ASPART PER UNIT CHARGE SC SCH ×2 (06:46→17:30)
--- NOTE | 2025-01-17 08:16 | Hospitalist Progress Note ---
Date of Service January 17, 2025 Assessment & Plan (1) Syncope and collapse: (2) Bradycardia with 41-50 beats per minute: (3) Hypertension: (4) Dementia: (5) Renal insufficiency: Plan Patient is a 79-year-old female with past medical history including dementia, iron deficiency, diabetes mellitus, hypertension, GERD, and hyperlipidemia. She presents to the emergency department on 01/14/2025 after having 2 syncopal episodes at a family reunion and 1 episode en route to the hospital. While in the emergency department she has had heart rates in the 30s to 50s. CXR negative. EKG with sinus bradycardia. #Syncope & Collapse - with 3 episodes of syncope on 01/14 - Echo on 01/18 with EF 55-60%, left ventricle is normal size, normal left ventricle wall thickness, left ventricular wall motion is normal, grade 1 diastolic dysfunction, mild aortic valve sclerosis without significant aortic valve stenosis - Pacer pads placed - Cardiology consulted - EP assembly line worker Dr. Ruiz consulted for PPM placement 01/17 - Patient can follow-up with [facility] (either Dr. Adrian Larson or Dr. Dc Diamond are both EP in that group: [phone]) - Hold Lisinopril & metoprolol - Continue to monitor on telemetry - PT/OT consulted #Renal insufficiency, possible JOSELIN - Unknown baseline. s/p IVF - Creatinine 1.52 on admission with improvement to 1.29 on AM labs - Lisinopril on hold, Avoid nephrotoxic medications - AM BMP #Hypomagnesemia - low at 1.0, s/p 5 bags IV mag with repletion to 1.9. Now low again at 1.5, will replete with 2 bags IV mag now - Consider starting daily mag supplement - Trend mag #Yeast infection under left breast - Topical nystatin powder as needed to affected skin folds #Type 2 Diabetes - A1c 01/15: 6.6% - on 18 units Lantus BID & Metformin outpatient. - Hold glargine + metformin while inpatient - Pharmacy consulted to aide with glycemic needs #Dementia- Continue donepezil DVT prophylaxis: SCD's Code: full Repleted with IV mag Updated son at bedside Admission and Anticipated Discharge Date Admission Date: January 14, 2025 Subjective Patient seen and evaluated at bedside with her son present. She reports feeling well at this time. She did have a sinus pause this morning around 0700 and RN reports she was diaphoretic and lethargic immediately following this but then improved. Cardiology plans to place a permanent pacemaker today. No additional complaints or concerns at this time. Telemetry reviewed: 8 second sinus pause overnight, 13 second sinus pause this morning, otherwise NSR in 60-70s. Physical Exam Physical Exam: General: No acute distress, nondiaphoretic, well-developed, well-nourished. Skin: Warm, dry. No peripheral edema noted. Yeast infection under left breast improving. Cardiac: Regular rate and rhythm without murmurs gallops or rubs. Pulm: Clear to auscultation bilaterally without wheezes, rales or rhonchi. N ormal respiratory effort. 97% on room air. Abdominal: Soft, nontender, nondistended. Bowel sounds present. Neuro: A&O x3 but wifty at times. No focal neurological deficits. Results & Data Results & Data Vital Signs (Past 12 Hours) Vital Signs Temp Pulse Pulse Resp BP Pulse Ox O2 Del Method 01/17/25 07:33 98.2 F 01/17/25 07:31 56 L 14 117/73 95 Room Air 01/17/25 02:57 98.2 F 54 L 15 117/58 L 94 Room Air 01/16/25 23:54 98.4 F 58 L 20 124/65 94 Room Air 01/16/25 23:00 62 01/16/25 20:21 98.1 F 85 22 142/77 H 95 Room Air Laboratory Results Reviewed CBC with differential Reviewed BMP, mag Diagnostic Findings Reviewed telemetry PG Care Time/CCT Total # of Minutes Spent Total Time Spent with Patient: Total time spent is greater than 50% in coordination of care (as documented) at patient's floor/unit and/or counseling patient: Coding Level of Care Code 20966 SUB INP/OBS CARE 3/50MIN Diagnoses Syncope and collapse R55 Bradycardia with 41-50 beats per minute R00.1 Hypertension I10 Dementia F03.90 Renal insufficiency N28.9
[2025-01-17] MEDS: MAGNESIUM SULFATE / D5W 1 GM/100 ML BAG IV SCH (08:29)
--- NOTE | 2025-01-17 11:03 | Cardiology Consultation ---
Date of Consultation January 17, 2025 Assessment & Plan (1) Syncopal episodes: (2) Sinus node dysfunction: Plan 1. Syncope: She has had several syncopal events in the past but the cause has not been identified although they have been witnessed. She does not have a good recollection of these events though she may have more episodes than was evident. In the ambulance on the way to the hospital as well as in the hospital she has had documented syncopal events with rhythms documenting sinus arrest. 2. Sinus node dysfunction: She has intermittent episodes of sinus arrest with prolonged pauses (up to 15 seconds) without an escape rhythm. These have caused episodes of syncope. I suspect her prior episodes are also due to this. She does have intermittent lightheadedness and dizziness which could be due to transient episodes although other possibilities for this exist. She was on beta-blockade however that was held and she had a 13-second pause this morning 48 hours after taking metoprolol succinate. She clearly needs a pacemaker. I discussed this with the patient and her family in the room and they were all agreeable.. I reviewed the indications, procedure, risks and alternatives with the patient and family, and answered all questions. Patient understands and agrees to the procedure. I also reviewed the risks and use of sedation, patient understands. According to her and her family she signed her own consents. History of Present Illness Reason for Consultation: Syncope and sinus arrest Attending Physician: Dc Ji History of Present Illness This is a 79-year-old woman with a history of dementia although she is very communicative, diabetes mellitus, hypertension, GERD and hyperlipidemia. She typically sees physicians in the [place] area and will follow-up there. She has had several syncopal episodes in the past and her current presentation was due to the 2 syncopal events at a family reunion as well as 1 interrupted the hospital. She also had periods of documented sinus arrest, on the morning of January 15, 2025 on telemetry she had an asystolic episode lasting about 15 seconds due to sinus arrest without an escape rhythm. She was taking metoprolol succinate but only 50 mg with the last dose on January 14, 2025. Her prior syncopal events had not been diagnosed. She had an echocardiogram January 15, 2025 which shows normal left ventricular size and function with an ejection fraction of 55 to 60%. Her presenting electrocardiogram showed sinus rhythm with premature atrial beats at a heart rate of 57 bpm. Review of telemetry demonstrates predominantly sinus rhythm and sinus bradycardia with periods of sinus arrest and junctional escape beats but other periods of prolonged asystole (up to 15 seconds or more, 13 seconds on the morning of January 17, 2025). She does not have symptoms of nausea, vomiting, etc. to suggest a vagal component. At the time my evaluation she is awake and alert, her family is present. She does not have good recollection of these events, in part she has a poor memory from her dementia but also she does not seem to be aware of loss of consciousness but it has been witnessed and well-documented. She is currently on no medications to cause bradycardia. Allergies Allergy/AdvReac Type Severity Reaction Status Date / Time No Known Allergies Allergy Verified 01/14/25 15:03 Home Medications Medication Instructions Recorded Confirmed Type donepezil 5 mg tablet 5 mg PO HS 01/14/25 01/14/25 History ferrous sulfate 325 mg (65 mg 325 mg PO DAILY 01/14/25 01/14/25 History iron) tablet folic acid 1 mg tablet 1 mg PO DAILY 01/14/25 01/14/25 History ibuprofen 200 mg tablet 400 mg PO Q6H PRN Pain 01/14/25 01/14/25 History insulin glargine 100 unit/mL (3 18 unit subcut BID 01/14/25 01/14/25 History mL) subcutaneous pen (Lantus Solostar U-100 Insulin) lisinopril 10 mg tablet 10 mg PO DAILY 01/14/25 01/14/25 History metformin 500 mg tablet 500 mg PO DAILY 01/14/25 01/14/25 History metoprolol succinate 50 mg 50 mg PO DAILY 01/14/25 01/14/25 History tablet,extended release 24 hr omeprazole 40 mg capsule,delayed 40 mg PO DAILY 01/14/25 01/14/25 History release simvastatin 10 mg tablet 10 mg PO DAILY 01/14/25 01/14/25 History Patient History Social History Smoking Status: Never smoker Hx Alcohol Use: Yes Alcohol type: wine Hx Substance Use: No Preferred Language: Macedonian Communication Ability: Effective 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 HEENT: Unremarkable Neck: No jugular venous distention, carotid pulses are normal and equal bilaterally without bruits. Pulmonary: Clear to auscultation bilaterally. Cardiac: Regular rhythm with no murmur, gallop or rub. Abdomen: Soft, nontender with normal bowel sounds. Extremities: No edema. Neurologic: No focal findings. Skin: No rash, ecchymoses or petechiae. Results & Data Vital Signs (Past 12 Hours) Vital Signs Temp Pulse Pulse Resp BP Pulse Ox O2 Del Method 01/17/25 07:33 36.8 C 01/17/25 07:31 56 L 14 117/73 95 Room Air 01/17/25 02:57 36.8 C 54 L 15 117/58 L 94 Room Air 01/16/25 23:54 36.9 C 58 L 20 124/65 94 Room Air 01/16/25 23:00 62 Laboratory Results Cardiac Enzymes 01/17/25 Range/Units 05:31 AST 17 (13-39) U/L CBC 01/17/25 Range/Units 05:31 WBC 9.78 (4.8-10.8) K/ul RBC 3.44 L (4.20-5.40) M/uL Hgb 10.6 L (12.0-16.0) g/dl Hct 31.5 L (37.0-47.0) % Plt Count 250 (130-400) K/uL Neut # (Auto) 4.77 (1.40-6.50) K/uL Lymph # (Auto) 4.02 H (1.20-3.40) K/uL [place] # (Auto) 0.77 H (0.11-0.59) K/uL Eos # (Auto) 0.15 (0.00-0.50) K/uL Baso # (Auto) 0.04 (0.00-0.20) K/uL Comprehensive Metabolic Panel 01/17/25 Range/Units 05:31 Sodium 138 (136-145) mmol/L Potassium 4.4 (3.5-5.1) mmol/L Chloride 108 H (98-107) mmol/L Carbon Dioxide 24 (21-32) mmol/L BUN 22 (6-23) mg/dl Creatinine 1.30 H (0.6-1.2) mg/dl Glucose 99 (70-99(Fasting)) mg/dl Calcium 9.8 (8.6-10.3) mg/dl AST 17 (13-39) U/L ALT 12 (7-52) U/L Alkaline Phosphatase 62 (34-104) U/L Total Protein 6.3 (6.0-8.3) gm/dl Albumin 3.3 L (3.4-5.0) gm/dl Intake and Output 01/16/25 01/17/25 01/17/25 22:59 06:59 14:59 Intake Total 200 / 200 0 / 200 100 / 100 Output Total 301 / 476 175 / 476 Balance -101 / -276 -175 / -276 100 / 100 Intake: IV 100 / 100 Magnesium Sulfate / D5w 1 gm In 100 / 100 100 ml @ 50 mls/hr IV Q2H JONNATHAN Rx#:[id number] Oral 200 / 200 0 / 200 Output: Urine 300 / 475 175 / 475 # Bowel Movements Other: # Unmeasured Voids 1 Weight 57.924 kg Weight Measurement Method Built in [facility] Diagnostic Findings Telemetry reviewed in detail, described in the HPI. PG Care Time/CCT Total # of Minutes Spent Total Time Spent with Patient: Total time spent is greater than 50% in coordination of care (as documented) at patient's floor/unit and/or counseling patient: Coding Level of Care Code 45715 INT INP/OBS CARE 2/55MIN Diagnoses Syncopal episodes R55 Sinus node dysfunction I49.5
--- NOTE | 2025-01-17 11:39 | Pharmacy Report ---
Pharmacy Glycemic Short Note 2 - Date of Service January 17, 2025 - Glycemic Short BSG Results (Last 24 hours): 01/16/25 01/16/25 01/17/25 16:14 20:54 05:31 Glucose 99 POC Glucose 80 119 H 01/17/25 08:09 Glucose POC Glucose 86 OUTPATIENT ANTIDIABETIC REGIMEN: * Lantus 18 units SC BID * Metformin 500 mg PO daily HbA1c: 6.6% (01/15/25) ASSESSMENT: 01/17 * NPO for possible pacemaker today * BSG's below goal for most of the day yesterday. Increased slightly at dinner so low-dose Lantus was adminsitered per parameters. BSG below goal again this AM. No hypoglycemic episodes. * Will hold Lantus and only adminsiter if BSG's rise above 140 mg/dL. If administered, will do so at a reduced dose * No change to Novolog - only 2 units administered yesterday evening to cover CHO intake. Insufficient data to determine if adjustments are indicated. 01/16 * BSG 84 mg/dL on labs this morning, basal held this morning, will set loose scale for PM * Continues to NPO- will continue with current novolog parameters 01/15 * is a 79 year old female who presented to ED on 01/14/25 following multiple syncopal episodes * Initial insulin regimen ordered by hospitalist included Lantus 14 units SC BID (received 2 doses), Novolog CF of 25 and carb ratio of 10, and metformin 500 mg PO daily * Pharmacy consulted for glycemic management on hospital day 1, initial changes: * Metformin discontinued * Basal insulin discontinued * Novolog loosened * Blood sugars of 100 and 106 mg/dL today - will hold off on further basal insulin today PLAN FOR INPATIENT GLYCEMIC CONTROL: * Hold outpatient oral diabetes medications * Basal insulin * Lantus 4 units q12h (hold if BSG less than 140 mg/dL) * Bolus insulin * NovoLog per scale ACHS or Q6hrs while NPO * Goal Range: Low 120 mg/dL - High 160 mg/dL * Correction Factor: 40 mg/dL/unit * Nutritional / Prandial insulin per carb ratio of 1 unit per 13 grams CHO consumed
--- NOTE | 2025-01-17 13:04 | Pre Anesthesia Assessment ---
Date of Service January 17, 2025 Pre Sedation Assessment Vital Signs Temp Pulse Pulse Resp BP Pulse Ox Pulse Ox 01/17/25 12:30 63 18 121/65 97 01/17/25 11:13 36.7 C 68 18 124/63 99 01/17/25 07:33 36.8 C 01/17/25 07:31 56 L 14 117/73 95 01/17/25 07:30 55 L 01/17/25 02:57 36.8 C 54 L 15 117/58 L 94 01/16/25 23:54 36.9 C 58 L 20 124/65 94 01/16/25 23:00 62 01/16/25 20:21 36.7 C 85 22 142/77 H 95 01/16/25 18:00 92 01/16/25 15:55 36.8 C 76 16 120/66 98 01/16/25 14:00 53 L O2 Del Method O2 Del Method 01/17/25 12:30 Room Air 01/17/25 11:13 Room Air 01/17/25 07:33 01/17/25 07:31 Room Air 01/17/25 07:30 01/17/25 02:57 Room Air 01/16/25 23:54 Room Air 01/16/25 23:00 01/16/25 20:21 Room Air 01/16/25 18:00 Room Air 01/16/25 15:55 Room Air 01/16/25 14:00 Cardiovascular RRR, no murmur, no edema Respiratory normal respiratory effort, lungs clear to auscultation Pre-Sedation Airway Assessment Smoking Status: Never smoker Short, Thick Neck: No Thyromental Distance: < 3.5 Finger Breadths Oral Cavity: + WNL Mallampati Class: II ASA: ASA2 NPO Status Date of Last Intake of Fluids: 01/16/25 Time of Last Intake of Fluids: 22:00 Date of Last Intake of Solid Food: 01/16/25 Time of Last Intake of Solid Foods: 22:00 Procedure Planning Contraindications for Sedation: none Current Medications Reviewed: Yes Notes The planned sedation has been discussed with the patient. Informed Consent was obtained. I have identified the patient, determined the appropriateness of sedation and have assessed the patient immediately prior to the procedure. All medicine(s) and interventions are by my order.
[2025-01-17] MEDS: LIDOCAINE 1% LOCAL 20 ML VIAL ONE (14:03)
[2025-01-17] MEDS: VANCOMYCIN HCL 1000MG/20ML VIAL ONE (14:03)
[2025-01-17] MEDS: ceFAZolin 330 MG/ML 1 GM VIAL ONE (14:04)
[2025-01-17] MEDS: WATER, STERILE FOR INJ 10 ML VIAL ONE (14:04)
[2025-01-17] MEDS: MIDAZOLAM HCL 5 MG/ML 1 ML VIAL ONE (14:38)
--- NOTE | 2025-01-17 14:45 | Electrophysiology Report ---
Date of Service January 17, 2025 Electrophysiology Procedure Electrophysiology Procedure Report Preoperative diagnosis: Sinus arrest Postoperative diagnosis: Same Procedure: Dual-chamber left bundle branch pacemaker implantation Surgeon: Vishnu Ruiz MD Estimated blood loss: 20 cc Complications: None Disposition: Chairperson Anesthesiology recovery Procedure details: After obtaining informed consent for the procedure, the patient was brought to the laboratory and prepped and draped in the standard sterile manner. 5 the left prepectoral region was anesthetized with 1% lidocaine local anesthetic and left axillary venipuncture was performed by percutaneous technique and a guidewire placed through the left subclavian vein into the superior vena cava. The area was further infiltrated with 1% lidocaine local anesthetic and a 5 cm incision was made parallel to the left clavicle and 2 cm below it and carried down to the anterior pectoralis fascia. A pacemaker pocket was formed by blunt dissection anterior to the pectoralis fascia and a vancomycin-soaked sponge was placed in the pocket. A 9 Welsh Medtronic lead introducer was placed over the guidewire into the left subclavian vein, the dilator and guidewire were removed and a bipolar active fixation steroid tipped atrial lead was advanced through the introducer into the superior vena cava. A guidewire was placed through the introducer and the introducer was stripped from the lead and guidewire. A 7 Welsh Medtronic lead introducer was placed over the guidewire into the left subclavian vein, the dilator and guidewire were removed. A C315 His 02 septal sheath was advanced through the introducer over a guidewire and advanced into the right ventricular outflow tract. The guidewire and dilator were removed and the sheath was positioned in a mid septal location. A bipolar active fixation steroid tipped ventricular lead was advanced through the introducer and rotated to advance the screw into the septum. Septal penetration was confirmed by electrogram morphology. Pacing and sensing thresholds were evaluated in bipolar configuration and are noted on the data sheet. The septal sheath was stripped away from the lead. The introducer was removed. Using a curved stylette the atrial lead was positioned in the region of the atrial appendage and the screw extended fixing the lead in position. Pacing and sensing thresholds were evaluated in bipolar configuration and are recorded on the implant data sheet. Once the leads were in position they were attached to the anterior pectoralis fascia using 2 sutures of 2-0 silk around each lead collar. The vancomycin soaked sponge was removed from the pocket, hemostasis was obtained, the pacemaker was attached to the leads and placed in the pocket with the leads coiled beneath it. The incision was closed with a running double subcutaneous closure of 3-0 Vicryl absorbable suture, followed by running subcuticular skin closure of 4-0 Vicryl absorbable suture. Bacitracin ointment was placed on the incision and a dressing applied. [facility] [place] Electrophysiology codes Indication for Procedure (1) Sinus node dysfunction: Pacing Procedure 1: Pacin Insert/Replace Pacer A & V PG Moderate Sedation Codes Moderate Sedation Codes Procedure 1: Sedation/Anesthesia: 21577 Mod Sedation by the same physician;Init15 Min Child Age 5 & Up Procedure 2: Sedation/Anesthesia: 93326 Mod Sedation by the same physician; Ea [id number] Minutes
--- NOTE | 2025-01-17 14:46 | Post Anesthesia Assessment ---
Date of Service January 17, 2025 Post Sedation Assessment Vital Signs Temp Pulse Pulse Resp BP Pulse Ox Pulse Ox 01/17/25 12:30 63 18 121/65 97 01/17/25 11:13 36.7 C 68 18 124/63 99 01/17/25 07:33 36.8 C 01/17/25 07:31 56 L 14 117/73 95 01/17/25 07:30 55 L 01/17/25 02:57 36.8 C 54 L 15 117/58 L 94 01/16/25 23:54 36.9 C 58 L 20 124/65 94 01/16/25 23:00 62 01/16/25 20:21 36.7 C 85 22 142/77 H 95 01/16/25 18:00 92 01/16/25 15:55 36.8 C 76 16 120/66 98 O2 Del Method O2 Del Method 01/17/25 12:30 Room Air 01/17/25 11:13 Room Air 01/17/25 07:33 01/17/25 07:31 Room Air 01/17/25 07:30 01/17/25 02:57 Room Air 01/16/25 23:54 Room Air 01/16/25 23:00 01/16/25 20:21 Room Air 01/16/25 18:00 Room Air 01/16/25 15:55 Room Air Recovery Score Activity: Moves 4 extremities Respiration: Deep Breath/Cough Circulation: +/-20% PreAnes Value Consciousness: Fully Awake Oxygen Saturation: > 92% On Room Air Discharge Sedation Level of Care: Fast Track Phase II Post Sedation Plan On clinical assessment, the patient appears to have tolerated the sedation without complications. Patient is recovering as anticipated. Patient will continue to be monitored by nursing and may be discharged when sedation discharge criteria are met per below protocol. Upon Completions of procedure up to 15 minutes continue every 5 minute vital signs and the P.A.R. score; then discharge to a Phase I or Fast Track to Phase II per the following guidelines: * Discharge Patient to appropriate Phase II area if PAR is 8 or greater or return to pre- procedure baseline. The post - procedure orders will be as directed. * If PAR score is less than 8 or not return to pre-procedure baseline then patient will follow Phase I monitoring till PAR is reached for Phase II. The Phase I may be done in procedure room or may call to secure a Phase I area. * If naloxone or flumazenil are used for reversal, hold in Phase I for continued monitoring from when last reversal dose was given for a minimum of 60 minutes or longer pending the nurse and/or physician discretion of patient condition before discharge to Phase II. Please call the Sedation Physician to re-evaluate and complete post-note for discharge to Phase II area. Do NOT discharge from procedure sedation or Phase 1 until post- sedation evaluation note is complete by procedure /sedation MD Sedation Discharge Instructions to be given to the patient at discharge to home.
[2025-01-17] MEDS: Nursing to Pharmacy Communication SCH (16:36)
[2025-01-17] MEDS ORDERED: LANTUS PER UNIT CHARGE SC SCH (18:00)
[2025-01-17] MEDS: ACETAMINOPHEN W/CODEINE #3 1 TAB PO PRN (19:19)
[2025-01-17] MEDS: MoRPHine SULFATE 2 MG/ML CARP IV STA (22:34)
[2025-01-17 23:14] LABS: Anion Gap 7.0 (3-11); Blood Urea Nitrogen 22.0 mg/dl (6-23); Calcium 9.8 mg/dl (8.6-10.3); Carbon Dioxide 25.0 mmol/L (21-32); Chloride 105.0 mmol/L (98-107); Creatinine Clr Calc Pharmacy 25.2 ml/min; Glucose 131.0 mg/dl (70-99(Fasting)); Magnesium 1.8 mg/dl (1.7-2.4); Potassium 4.3 mmol/L (3.5-5.1); Sodium 137.0 mmol/L (136-145)
[2025-01-18] MEDS ORDERED: LANTUS PER UNIT CHARGE SC SCH (06:00)
[2025-01-18 06:49] LABS: Hematocrit (blood only) 34.0 % (37.0-47.0); Hemoglobin 11.1 g/dl (12.0-16.0); Mean Corpuscular Hemoglobin 30.1 pg (25.0-34.0); Mean Corpuscular Volume 92.1 fL (80.0-100.0); Platelet Count 254 K/uL (130-400); RDW Standard Deviation 46.4 fL (36.4-46.3); Red Blood Count 3.69 M/uL (4.20-5.40); White Blood Count 8.66 K/ul (4.8-10.8)
[2025-01-18 07:14] LABS: Anion Gap 7.0 (3-11); Blood Urea Nitrogen 24.0 mg/dl (6-23); Calcium 9.6 mg/dl (8.6-10.3); Carbon Dioxide 24.0 mmol/L (21-32); Chloride 105.0 mmol/L (98-107); Creatinine Clr Calc Pharmacy 26.6 ml/min; Glucose 137.0 mg/dl (70-99(Fasting)); Magnesium 1.7 mg/dl (1.7-2.4); Potassium 4.6 mmol/L (3.5-5.1); Sodium 136.0 mmol/L (136-145)
--- NOTE | 2025-01-18 07:14 | XRay Report ---
EXAM: XR chest 2V PA/lateral CLINICAL HISTORY: EXACT TIME ORDERED. Evaluate for pneumothorax. TECHNIQUE: X-ray images of the chest were obtained in posteroanterior (PA) and lateral projections. COMPARISON: No prior studies available for comparison. FINDINGS: Pulmonary Parenchyma: No evidence of consolidation, collapse, or focal opacities. No pulmonary nodules identified. No evidence of pleural effusion or pleural thickening. Heart and Mediastinum: Heart size and shape are normal. No mediastinal widening or masses. No hilar or mediastinal lymphadenopathy. Bony Thorax: Bony thorax appears intact without fractures or deformities. Soft Tissues: The left-sided pacemaker was noted, with leads noted in situ in the right atrium and right ventricle Soft tissues overlying the chest wall are unremarkable. IMPRESSION: 1. No acute cardiopulmonary abnormalities identified. 2. The left-sided pacemaker was noted. Electronically signed by Jesse Mirza 01-18-2025 07:14 AM
[2025-01-18] MEDS: LANTUS PER UNIT CHARGE SC ONE (09:22)
[2025-01-18] MEDS: MAGNESIUM OXIDE 400 MG TAB PO SCH (09:24)
--- NOTE | 2025-01-18 09:24 | Cardiology Progress Note ---
Date of Service January 18, 2025 Assessment & Plan (1) Status post placement of cardiac pacemaker: Plan Post-op day #1: The site looks good, CXR looks good and pacer is working well. She is stable for discharge from my standpoint. I do have her scheduled for a wound check in 2 days, however if she arranges follow-up in the [place] area that appointment can be canceled. Admission and Anticipated Discharge Date Admission Date: January 14, 2025 Subjective Still having incisional pain, does not seem uncomfortable. no other complaints. Physical Exam Physical Exam: Incision: Clean and dry, no bleeding or ecchymosis, no swelling. Dressing changed. Heart: No rub Lungs: Clear Results & Data Vital Signs (Past 12 Hours) Vital Signs Temp Pulse Pulse Resp BP Pulse Ox O2 Del Method 01/18/25 07:10 36.5 C 72 14 114/69 97 Room Air 01/18/25 07:00 66 01/18/25 02:36 36.8 C 83 18 110/69 97 Room Air 01/17/25 23:33 78 127/76 01/17/25 22:58 73 01/17/25 22:36 71 111/69 01/17/25 21:59 36.7 C 89 18 114/82 96 Room Air Laboratory Results Cardiac Enzymes 01/17/25 01/18/25 Range/Units 22:35 00:24 Troponin I High Sens 967.4 H* 893.0 H* (0-14) pg/ml CBC 01/18/25 Range/Units 05:59 WBC 8.66 (4.8-10.8) K/ul RBC 3.69 L (4.20-5.40) M/uL Hgb 11.1 L (12.0-16.0) g/dl Hct 34.0 L (37.0-47.0) % Plt Count 254 (130-400) K/uL Comprehensive Metabolic Panel 01/17/25 01/18/25 Range/Units 22:35 05:59 Sodium 137 136 (136-145) mmol/L Potassium 4.3 4.6 (3.5-5.1) mmol/L Chloride 105 105 (98-107) mmol/L Carbon Dioxide 25 24 (21-32) mmol/L BUN 22 24 H (6-23) mg/dl Creatinine 1.52 H 1.44 H (0.6-1.2) mg/dl Glucose 131 H 137 H (70-99(Fasting)) mg/dl Calcium 9.8 9.6 (8.6-10.3) mg/dl Intake and Output 01/17/25 01/18/25 01/18/25 22:59 06:59 14:59 Intake Total 100 / 500 200 / 500 Output Total 200 / 200 Balance 100 / 300 0 / 300 Intake: Oral 100 / 300 200 / 300 Output: Urine 200 / 200 Other: # Unmeasured Voids 1 Weight 57 kg Weight Measurement Method Built in [facility] Diagnostic Findings Post-op ECG: Atrial pacing with intact AV conduction Telemetry: Normal pacer function CXR: Good lead position, no pneumothorax Pacer evaluation: Excellent pacing and sensing characteristics, normal operation PG Care Time/CCT Total # of Minutes Spent Total Time Spent with Patient: Total time spent is greater than 50% in coordination of care (as documented) at patient's floor/unit and/or counseling patient: Coding Level of Care Code 03442 Post Operative Follow-Up Diagnoses Status post placement of cardiac pacemaker Z95.0 CPT Codes Dual Lead Pacemaker System - 55799 ([id number])
--- NOTE | 2025-01-18 12:34 | Hospitalist Progress Note ---
Date of Service January 18, 2025 Assessment & Plan (1) Syncope and collapse: (2) Bradycardia with 41-50 beats per minute: (3) Hypertension: (4) Dementia: (5) Renal insufficiency: Plan Patient is a 79-year-old female with past medical history including dementia, iron deficiency, diabetes mellitus, hypertension, GERD, and hyperlipidemia. She presents to the emergency department on 01/14/2025 after having 2 syncopal episodes at a family reunion and 1 episode en route to the hospital. While in the emergency department she has had heart rates in the 30s to 50s. CXR negative. EKG with sinus bradycardia. Echo with EF 55-60%, left ventricle is normal size, normal left ventricle wall thickness, left ventricular wall motion is normal, grade 1 diastolic dysfunction, mild aortic valve sclerosis without significant aortic valve stenosis. #Syncope & Collapse - with 3 episodes of syncope on 01/14. Now with permanent pacemaker placed by Dr. Ruiz 01/17. Can follow-up with [facility] (either Dr. Adrian Lrason or Dr. Dc Diamond are both EP in that group: [phone]) - Overnight, had episode of chest pain. Troponin elevated at 967, then downtrended to 893. EKG without ischemic changes. Chest pain now resolved - Patient became tachycardic in 140s, lightheaded, and dizzy when she got OOB this morning. Symptoms resolved and HR returned to normal once back in bed - Will check orthostatic VS - Metoprolol now resumed - Continue to monitor on telemetry - PT/OT recommending inpatient rehab. CM following #Renal insufficiency, possible JOSELIN - Unknown baseline. s/p IVF - Creatinine 1.52 on admission - Lisinopril on hold, Avoid nephrotoxic medications - AM BMP #Hypomagnesemia - repleted with IV mag, now WNL - Started daily mag supplement - Trend mag #Yeast infection under left breast - Topical nystatin powder as needed to affected skin folds #Type 2 Diabetes - A1c 01/15: 6.6% - on 18 units Lantus BID & Metformin outpatient. - Hold glargine + metformin while inpatient - Pharmacy consulted to aide with glycemic needs #Dementia- Continue donepezil DVT prophylaxis: SCD's Code: full Dispo: Remaining inpatient for further monitoring. PT/OT recommending inpatient rehab Started oral mag supplement Resumed metoprolol Updated son at bedside Admission and Anticipated Discharge Date Admission Date: January 14, 2025 Subjective Patient seen and evaluated at bedside. She reports some left shoulder discomfort since her pacemaker placement yesterday; likely due to arm positioning during the procedure. She had an episode of chest pain last night. Overnight resident evaluated her and she had sternal pain to palpation that was reproducible. Her troponin was elevated but then down trended. She denies any chest pain at this time. When she got out of bed this morning, she became lightheaded and dizzy and her heart rate was elevated in 140s. She was placed back in bed and her symptoms resolved and HR returned to normal. We discussed her staying overnight for further monitoring; she is agreeable. No additional complaints or concerns at this time. Telemetry reviewed: NSR with PACs in 70s. Physical Exam Physical Exam: General: No acute distress, nondiaphoretic, well-developed, well-nourished. Skin: Warm, dry. No peripheral edema noted. Yeast infection under left breast improving. Cardiac: Regular rate and rhythm without murmurs gallops or rubs. Dressing over pacemaker placement clean, dry, intact. MSK: Left shoulder ROM limited by pain. Pulm: Clear to auscultation bilaterally without wheezes, rales or rhonchi. Normal respiratory effort. 96% on room air. Abdominal: Soft, nontender, nondistended. Bowel sounds present. Neuro: A&O x3 but wifty at times. No focal neurological deficits. Results & Data Results & Data Vital Signs (Past 12 Hours) Vital Signs Temp Pulse Pulse Resp BP Pulse Ox O2 Del Method 01/18/25 10:50 97.5 F L 114 H 26 H 135/84 96 Room Air 01/18/25 07:10 97.7 F 72 14 114/69 97 Room Air 01/18/25 07:00 66 01/18/25 02:36 98.2 F 83 18 110/69 97 Room Air PG Care Time/CCT Total # of Minutes Spent Total Time Spent with Patient: Total time spent is greater than 50% in coordination of care (as documented) at patient's floor/unit and/or counseling patient: Coding Level of Care Code 80518 SUB INP/OBS CARE 3/50MIN Diagnoses Syncope and collapse R55 Bradycardia with 41-50 beats per minute R00.1 Hypertension I10 Dementia F03.90 Renal insufficiency N28.9
--- NOTE | 2025-01-18 12:48 | Pharmacy Report ---
Pharmacy Glycemic Short Note 2 - Date of Service January 18, 2025 - Glycemic Short BSG Results (Last 24 hours): 01/17/25 01/17/25 01/17/25 16:23 19:45 22:35 Glucose 131 H POC Glucose 103 H 180 H 01/18/25 01/18/25 01/18/25 05:59 07:09 10:49 Glucose 137 H POC Glucose 146 H 212 H OUTPATIENT ANTIDIABETIC REGIMEN: * Lantus 18 units SC BID * Metformin 500 mg PO daily HbA1c: 6.6% (01/15/25) ASSESSMENT: 01/18 * BSG's with notable trend up, coinciding precisely with when the patient was ordered a diet yesterday * Will add back on Lantus, but conservatively given longstanding recent history of BSG's below goal * Will leave Novolog parameters as-is for now as trend is difficult to determine - no CHO charted with breakfast/lunch although the insulin amounts administ ered suggest covered CHO ~40g per meal. 01/17 * NPO for possible pacemaker today * BSG's below goal for most of the day yesterday. Increased slightly at dinner so low-dose Lantus was adminsitered per parameters. BSG below goal again this AM. No hypoglycemic episodes. * Will hold Lantus and only adminsiter if BSG's rise above 140 mg/dL. If administered, will do so at a reduced dose * No change to Novolog - only 2 units administered yesterday evening to cover CHO intake. Insufficient data to determine if adjustments are indicated. 01/16 * BSG 84 mg/dL on labs this morning, basal held this morning, will set loose scale for PM * Continues to NPO- will continue with current novolog parameters 01/15 * is a 79 year old female who presented to ED on 01/14/25 following multiple syncopal episodes * Initial insulin regimen ordered by hospitalist included Lantus 14 units SC BID (received 2 doses), Novolog CF of 25 and carb ratio of 10, and metformin 500 mg PO daily * Pharmacy consulted for glycemic management on hospital day 1, initial changes: * Metformin discontinued * Basal insulin discontinued * Novolog loosened * Blood sugars of 100 and 106 mg/dL today - will hold off on further basal insulin today PLAN FOR INPATIENT GLYCEMIC CONTROL: * Hold outpatient oral diabetes medications * Basal insulin * Lantus 4 units x1 this AM * Bolus insulin * NovoLog per scale ACHS or Q6hrs while NPO * Goal Range: Low 110 mg/dL - High 140 mg/dL * Correction Factor: 40 mg/dL/unit * Nutritional / Prandial insulin per carb ratio of 1 unit per 13 grams CHO consumed
--- NOTE | 2025-01-18 12:56 | Electrocardiogram Report ---
Test Reason : Blood Pressure : */* mmHG Vent. Rate : 61 BPM Atrial Rate : 61 BPM P-R Int : 182 ms QRS Dur : 72 ms QT Int : 430 ms P-R-T Axes : 38 9 52 degrees QTcB Int : 432 ms Atrial-paced rhythm Low voltage QRS Abnormal ECG When compared with ECG of 16-Jan-2025 05:52, Electronic atrial pacemaker has replaced Sinus rhythm Confirmed by Jonah Hicks ([id number]) on 01/18/2025 12:56:13 PM Referred By: REFERRED SELF Confirmed By: Jonah Hicks
--- NOTE | 2025-01-18 13:03 | Cardiology Progress Note ---
Date of Service January 18, 2025 Assessment & Plan (1) Syncopal episodes: Plan: s/p DDD [employer] PPM will arrange for cardiac follow up with my prior office [place] with Dr. Adrian Larson [phone] reviewed with PPM clinical pharmacy manager Lyudmila-she will arrange for site check within 7-10 days and then cardiac follow up (2) Sinus arrest: (3) Anemia: (4) Hyperlipidemia LDL goal <100: (5) Diabetes mellitus: (6) Renal insufficiency: (7) CAD (coronary artery disease): Plan: remote hx of CAD and stent-family thinks was with Dr. Oconnor in [place] in early . Resume BB and ASA. Plan Resume BB at this time as long as BP tolerates. The family also expressed interest in f/u in [place] post [place]. I would be happy to have her follow up with my prior group-[facility]-either Dr. Adrian Larson or Dr. Dc Diamond are both EP in that group. . Thank you for allowing me participate in her care. Admission and Anticipated Discharge Date Admission Date: January 14, 2025 Subjective Patient seen and evaluated at bedside. She reports some left shoulder discomfort since her pacemaker placement yesterday; likely due to arm positioning during the procedure. She had an episode of chest pain last night. Overnight resident evaluated her and she had sternal pain to palpation that was reproducible. Her troponin was elevated but then down trended. She denies any chest pain at this time. When she got out of bed this morning, she became lightheaded and dizzy and her heart rate was elevated in 140s. She was placed back in bed and her symptoms resolved and HR returned to normal. We discussed her staying overnight for further monitoring; she is agreeable. No additional complaints or concerns at this time. Appreciate Dr. Ruiz's assistance with PPM insertion. Telemetry reviewed: NSR with PACs in 70s. Review of Systems Review of Systems: All systems reviewed & are unremarkable except as noted in HPI & below Physical Exam Physical Exam: no change other than pacer incision Results & Data Vital Signs (Past 12 Hours) Vital Signs Temp Pulse Pulse Resp BP Pulse Ox O2 Del Method 01/18/25 10:50 36.4 C L 114 H 26 H 135/84 96 Room Air 01/18/25 07:10 36.5 C 72 14 114/69 97 Room Air 01/18/25 07:00 66 01/18/25 02:36 36.8 C 83 18 110/69 97 Room Air Laboratory Results Abnormal lab results 01/17/25 01/17/25 01/17/25 Range/Units 16:23 19:45 22:35 RBC (4.20-5.40) M/uL Hgb (12.0-16.0) g/dl Hct (37.0-47.0) % RDW Std Deviation (36.4-46.3) fL BUN (6-23) mg/dl Creatinine 1.52 H (0.6-1.2) mg/dl Glucose 131 H (70-99(Fasting)) mg/dl POC Glucose 103 H 180 H (70-99) mg/dl Troponin I High Sens 967.4 H* (0-14) pg/ml 01/18/25 01/18/25 01/18/25 Range/Units 00:24 05:59 07:09 RBC 3.69 L (4.20-5.40) M/uL Hgb 11.1 L (12.0-16.0) g/dl Hct 34.0 L (37.0-47.0) % RDW Std Deviation 46.4 H (36.4-46.3) fL BUN 24 H (6-23) mg/dl Creatinine 1.44 H (0.6-1.2) mg/dl Glucose 137 H (70-99(Fasting)) mg/dl POC Glucose 146 H (70-99) mg/dl Troponin I High Sens 893.0 H* (0-14) pg/ml 01/18/25 Range/Units 10:49 RBC (4.20-5.40) M/uL Hgb (12.0-16.0) g/dl Hct (37.0-47.0) % RDW Std Deviation (36.4-46.3) fL BUN (6-23) mg/dl Creatinine (0.6-1.2) mg/dl Glucose (70-99(Fasting)) mg/dl POC Glucose 212 H (70-99) mg/dl Troponin I High Sens (0-14) pg/ml Medications Administered Current Inpatient Medications Acetaminophen (Acetaminophen 325 Mg Tab) 650 mg PO Q4H PRN PRN Reason: Pain or Fever Stop: 02/13/25 18:01 Last Admin: 01/16/25 16:19 Dose: 650 mg Acetaminophen/Codeine Phosphate (Acetaminophen W/Codeine #3 1 Tab) 1 - 2 tab PO Q4H PRN PRN Reason: Moderate-Severe Pain Stop: 02/16/25 14:46 Last Admin: 01/18/25 09:22 Dose: 1 tab Dextrose (Dextrose 50% 50 Ml Syringe) 25 - 50 ml IV UD PRN; Protocol PRN Reason: Hypoglycemia Protocol Stop: 02/13/25 18:01 Ferrous Sulfate (Ferrous Sulfate 325 Mg Tab) 325 mg PO DAILY JONNATHAN Stop: 02/14/25 08:59 Last Admin: 01/18/25 09:23 Dose: 325 mg Folic Acid (Folic Acid 1 Mg Tab) 1 mg PO DAILY JONNATHAN Stop: 02/14/25 08:59 Last Admin: 01/18/25 09:24 Dose: 1 mg Glucagon (Glucagon For Inj 1 Mg Vial) 1 mg SQ UD PRN; Protocol PRN Reason: Hypoglycemia Protocol Stop: 02/13/25 18:01 Glucose (Glucose 40% Gel 15 Gm Tube) 15 - 30 gm PO UD PRN; Protocol PRN Reason: Hypoglycemia Protocol Stop: 02/13/25 18:01 Glucose (Glucose 10 Tab/Tube) 4 - 8 tab PO UD PRN; Protocol PRN Reason: Hypoglycemia Protocol Stop: 02/13/25 18:01 Insulin Aspart (Insulin Aspart Per Unit Charge) 0 units SC ACHS JONNATHAN Stop: 02/16/25 06:14 Last Admin: 01/18/25 12:26 Dose: 6 units Lisinopril (Lisinopril 10 Mg Tab) 10 mg PO DAILY JONNATHAN Stop: 02/14/25 08:59 Magnesium Oxide (Magnesium Oxide 400 Mg Tab) 400 mg PO BID JONNATHAN Stop: 02/17/25 08:59 Last Admin: 01/18/25 09:24 Dose: 400 mg Metoprolol Succinate (Metoprolol Succ 50mg Ext Rel Tab) 50 mg PO DAILY JONNATHAN Stop: 02/14/25 08:59 Miscellaneous (Carbohydrates For Hypoglycemia ) 15 - 30 gm PO UD PRN PRN Reason: Hypoglycemia Protocol Stop: 02/13/25 18:01 Miscellaneous Information (Pharmacy Glycemic Mgmt Consult) 1 each N/A UD PRN; Protocol PRN Reason: Consult Stop: 02/14/25 09:13 Nystatin (Nystatin Powder 15gm Btl) 1 appln EXT PRN PRN PRN Reason: Affected Skin Folds Stop: 02/15/25 09:12 Last Admin: 01/16/25 12:37 Dose: 1 appln Pantoprazole Sodium (Pantoprazole 40 Mg Tab) 40 mg PO DAILY [facility] Stop: 02/14/25 08:59 Last Admin: 01/18/25 09:23 Dose: 40 mg Simvastatin (Simvastatin 10 Mg Tab) 10 mg PO DAILY [facility] Stop: 02/14/25 08:59 Last Admin: 01/18/25 09:23 Dose: 10 mg (3) Anemia Anemia type: unspecified type Qualified Code(s): D64.9 - Anemia, unspecified
[2025-01-19 06:19] LABS: Hematocrit (blood only) 33.2 % (37.0-47.0); Hemoglobin 11.1 g/dl (12.0-16.0); Mean Corpuscular Hemoglobin 30.8 pg (25.0-34.0); Mean Corpuscular Volume 92.2 fL (80.0-100.0); Platelet Count 236 K/uL (130-400); RDW Standard Deviation 46.5 fL (36.4-46.3); Red Blood Count 3.60 M/uL (4.20-5.40); White Blood Count 9.75 K/ul (4.8-10.8)
[2025-01-19 06:51] LABS: Anion Gap 5.0 (3-11); Blood Urea Nitrogen 24.0 mg/dl (6-23); Calcium 9.9 mg/dl (8.6-10.3); Carbon Dioxide 28.0 mmol/L (21-32); Chloride 103.0 mmol/L (98-107); Creatinine Clr Calc Pharmacy 25.6 ml/min; Glucose 162.0 mg/dl (70-99(Fasting)); Magnesium 1.5 mg/dl (1.7-2.4); Potassium 4.7 mmol/L (3.5-5.1); Sodium 136.0 mmol/L (136-145)
[2025-01-19] MEDS: LANTUS PER UNIT CHARGE SC ONE (08:15)
[2025-01-19] MEDS: METOPROLOL SUCC 50MG EXT REL TAB PO SCH (11:03)
--- NOTE | 2025-01-19 11:16 | Hospitalist Progress Note ---
Date of Service January 19, 2025 Assessment & Plan (1) Syncope and collapse: (2) Status post placement of cardiac pacemaker: (3) Hypertension: (4) Dementia: (5) Renal insufficiency: Plan Patient is a 79-year-old female with past medical history including dementia, iron deficiency, diabetes mellitus, hypertension, GERD, and hyperlipidemia. She presents to the emergency department on 01/14/2025 after having 2 syncopal episodes at a family reunion and 1 episode en route to the hospital. While in the emergency department she has had heart rates in the 30s to 50s. CXR negative. EKG with sinus bradycardia. Echo with EF 55-60%, left ventricle is normal size, normal left ventricle wall thickness, left ventricular wall motion is normal, grade 1 diastolic dysfunction, mild aortic valve sclerosis without significant aortic valve stenosis. #Syncope & Collapse - with 3 episodes of syncope on 01/14. Now with permanent pacemaker placed by Dr. Ruiz 01/17. Can follow-up with [facility] (either Dr. Adrian Larson or Dr. Dc Diamond are both EP in that group: [phone]) - Sinus tachycardia this morning sustained 120-130s, but did not receive her AM dose of metoprolol yet - Orthostatic VS negative - Continue metoprolol. Monitor HR and titrate metoprolol as needed - Continue to monitor on telemetry - PT/OT recommending inpatient rehab. CM following #Renal insufficiency, possible JOSELIN - Unknown baseline. s/p IVF - Creatinine 1.52 on admission - Lisinopril on hold, Avoid nephrotoxic medications - AM BMP #Hypomagnesemia - s/p IV and PO repletion - Started daily mag supplement but mag remains low. Will replete with 2 bags IV mag now and continue PO repletion - Discontinued PPI and started Pepcid 10 mg once daily in its place (renally dose) - Trend mag #Yeast infection under left breast - Topical nystatin powder as needed to affected skin folds #Type 2 Diabetes - A1c 01/15: 6.6% - on 18 units Lantus BID & Metformin outpatient. - Hold glargine + metformin while inpatient - Pharmacy consulted to aide with glycemic needs #Dementia- Continue donepezil DVT prophylaxis: SCD's Code: full Dispo: Remaining inpatient for further monitoring. PT/OT recommending inpatient rehab Repleted with IV magnesium Discontinued PPI Started Pepcid Discussed case with cardiology Updated son and [id number] at bedside Admission and Anticipated Discharge Date Admission Date: January 14, 2025 Subjective Patient seen and evaluated in bedside chair with her son and [id number] present. She reports feeling better today. She does not complain of any sh oulder pain or incision pain. She denies any heart palpitations or sensation of a racing heartbeat. She did not get her metoprolol until later in the morning. She reports her heart rate may be elevated "because we have been giggling and here for the past half hour." She denies any complaints or concerns at this time. Telemetry reviewed: Currently NSR [id number] which is sustained x 40 minutes, prior to that was NSR 7080s. Physical Exam Physical Exam: General: No acute distress, nondiaphoretic, well-developed, well-nourished. Skin: Warm, dry. No peripheral edema noted. Yeast infection under left breast improving. Cardiac: Tachycardic rate in 120s, regular rhythm without murmurs gallops or rubs. Dressing over pacemaker placement clean, dry, intact. Pulm: Clear to auscultation bilaterally without wheezes, rales or rhonchi. Normal respiratory effort. 96% on room air. Abdominal: Soft, nontender, nondistended. Bowel sounds present. Neuro: A&O x3 but wifty at times. No focal neurological deficits. Results & Data Results & Data Vital Signs (Past 12 Hours) Vital Signs Temp Pulse Pulse Resp BP Pulse Ox O2 Del Method 01/19/25 08:11 98.1 F 100 H 20 117/67 95 Room Air 01/19/25 07:00 90 01/19/25 02:47 98.4 F 93 H 18 97/67 L 96 Room Air Laboratory Results Reviewed CBC Reviewed BMP, mag PG Care Time/CCT Total # of Minutes Spent Total Time Spent with Patient: Total time spent is greater than 50% in coordination of care (as documented) at patient's floor/unit and/or counseling patient: Coding Level of Care Code 02583 SUB INP/OBS CARE 3/50MIN Diagnoses Syncope and collapse R55 Status post placement of cardiac pacemaker Z95.0 Hypertension I10 Dementia F03.90 Renal insufficiency N28.9
[2025-01-19] MEDS: MAGNESIUM SULFATE / D5W 1 GM/100 ML BAG IV SCH (12:30)
--- NOTE | 2025-01-19 12:56 | Pharmacy Report ---
Pharmacy Glycemic Short Note 2 - Date of Service January 19, 2025 - Glycemic Short BSG Results (Last 24 hours): 01/18/25 01/18/25 01/19/25 16:13 20:06 05:35 Glucose 162 H POC Glucose 147 H 144 H 01/19/25 01/19/25 07:20 11:44 Glucose POC Glucose 145 H 119 H OUTPATIENT ANTIDIABETIC REGIMEN: * Lantus 18 units SC BID * Metformin 500 mg PO daily HbA1c: 6.6% (01/15/25) ASSESSMENT: 01/19 * Stressors stable * Random BSG elevated as compared to yesterday, which prompted increase in Lantus. Then POC BSG however was stable from yesterday AM. Slight increase in Lantus by 4 units today reasonable - will monitor/adjust tomorrow based on trend in BSG's * Post-prandial BSG's yesterday in goal range except lunch. Lunch BSG today in goal range despite no changes. Will keep Novolog as-is. 01/18 * BSG's with notable trend up, coinciding precisely with when the patient was ordered a diet yesterday * Will add back on Lantus, but conservatively given longstanding recent history of BSG's below goal * Will leave Novolog parameters as-is for now as trend is difficult to determine - no CHO charted with breakfast/lunch although the insulin amounts ad ministered suggest covered CHO ~40g per meal. 01/17 * NPO for possible pacemaker today * BSG's below goal for most of the day yesterday. Increased slightly at dinner so low-dose Lantus was adminsitered per parameters. BSG below goal again this AM. No hypoglycemic episodes. * Will hold Lantus and only adminsiter if BSG's rise above 140 mg/dL. If administered, will do so at a reduced dose * No change to Novolog - only 2 units administered yesterday evening to cover CHO intake. Insufficient data to determine if adjustments are indicated. 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 who presented to ED on 01/14/25 following multiple syncopal episodes * Initial insulin regimen ordered by hospitalist included Lantus 14 units SC BID (received 2 doses), Novolog CF of 25 and carb ratio of 10, and metformin 500 mg PO daily * Pharmacy consulted for glycemic management on hospital day 1, initial changes: * Metformin discontinued * Basal insulin discontinued * Novolog loosened * Blood sugars of 100 and 106 mg/dL today - will hold off on further basal insulin today PLAN FOR INPATIENT GLYCEMIC CONTROL: * Hold outpatient oral diabetes medications * Basal insulin * Lantus 8 units x1 this AM * Bolus insulin * NovoLog per scale ACHS or Q6hrs while NPO * Goal Range: Low 110 mg/dL - High 140 mg/dL * Correction Factor: 40 mg/dL/unit * Nutritional / Prandial insulin per carb ratio of 1 unit per 13 grams CHO consumed
--- NOTE | 2025-01-19 14:19 | Electrocardiogram Report ---
Test Reason : Blood Pressure : */* mmHG Vent. Rate : 64 BPM Atrial Rate : 64 BPM P-R Int : 146 ms QRS Dur : 70 ms QT Int : 390 ms P-R-T Axes : 74 -3 66 degrees QTcB Int : 402 ms Atrial-paced rhythm Low voltage QRS Borderline ECG When compared with ECG of 17-Jan-2025 15:36, No significant change Confirmed by Jonah Hicks ([id number]) on 01/19/2025 2:18:38 PM Referred By: REFERRED SELF Confirmed By: Jonah Hicks
[2025-01-19] MEDS: FAMOTIDINE 10 MG TABLET PO SCH (20:47)
[2025-01-20 06:55] LABS: Anion Gap 6.0 (3-11); Blood Urea Nitrogen 27.0 mg/dl (6-23); Calcium 9.7 mg/dl (8.6-10.3); Carbon Dioxide 28.0 mmol/L (21-32); Chloride 104.0 mmol/L (98-107); Creatinine Clr Calc Pharmacy 24.4 ml/min; Glucose 147.0 mg/dl (70-99(Fasting)); Magnesium 1.5 mg/dl (1.7-2.4); Potassium 4.3 mmol/L (3.5-5.1); Sodium 138.0 mmol/L (136-145)
--- NOTE | 2025-01-20 08:58 | Hospitalist Progress Note ---
Date of Service January 20, 2025 Assessment & Plan (1) Syncope and collapse: (2) Status post placement of cardiac pacemaker: (3) Hypertension: (4) Dementia: (5) Renal insufficiency: Plan Patient is a 79-year-old female with past medical history including dementia, iron deficiency, diabetes mellitus, hypertension, GERD, and hyperlipidemia. She presents to the emergency department on 01/14/2025 after having 2 syncopal episodes at a family reunion and 1 episode en route to the hospital. While in the emergency department she has had heart rates in the 30s to 50s. CXR negative. EKG with sinus bradycardia. Echo with EF 55-60%, left ventricle is normal size, normal left ventricle wall thickness, left ventricular wall motion is normal, grade 1 diastolic dysfunction, mild aortic valve sclerosis without significant aortic valve stenosis. #Syncope & Collapse - with 3 episodes of syncope on 01/14. Now with permanent pacemaker placed by Dr. Ruiz 01/17. Can follow-up with [facility] (either Dr. Adrian Larson or Dr. Dc Diamond are both EP in that group: [phone]) - HR is improved - Orthostatic VS negative - Continue metoprolol. Monitor HR and titrate metoprolol as needed - Continue to monitor on telemetry - PT/OT recommending inpatient rehab. CM following #Renal insufficiency, possible JOSELIN - Unknown baseline. s/p IVF - Creatinine 1.52 on admission, has remained around the same throughout her hospitalization - Lisinopril on hold, BP has been well-controlled without it. Consider discontinuing on discharge #Hypomagnesemia - s/p IV and PO repletion - Started daily mag supplement but mag remains low, will increase dose of mag- oxide to 800 mg BID - Repleted with 2 bags IV mag yesterday 01/19 but mag unchanged today. Will replete with 2 bags IV mag now and continue PO repletion - Discontinued PPI and started Pepcid 10 mg once daily in its place (renally dose) - continue - Trend mag. If remains refractory, consider 24 hour urine collection to look for renal wasting #Yeast infection under left breast - Topical nystatin powder as needed to affected skin folds #Type 2 Diabetes - A1c 01/15: 6.6% - on 18 units Lantus BID & Metformin outpatient. - Hold glargine + metformin while inpatient - Pharmacy consulted to aide with glycemic needs #Dementia- Continue donepezil DVT prophylaxis: SCD's Code: full Dispo: Anticipate rehab placement later today 01/20 Repleted with PO and IV magnesium Increased PO magnesium Admission and Anticipated Discharge Date Admission Date: January 14, 2025 Subjective Patient seen and evaluated at bedside. She reports some left shoulder discomfort. She denies any chest pain, palpitations, anxiety, lightheadedness. We discussed her going to [facility] this afternoon after her IV mag finishes. She denies any additional complaints or concerns at this time. Physical Exam Physical Exam: General: No acute distress, nondiaphoretic, well-developed, well-nourished. Skin: Warm, dry. No peripheral edema noted. Yeast infection under left breast greatly improved. Cardiac: Regular rate and rhythm without murmurs gallops or rubs. Dressing over pacemaker site clean, dry, intact. Pulm: Clear to auscultation bilaterally without wheezes, rales or rhonchi. Normal respiratory effort. 98% on room air. Abdominal: Soft, nontender, nondistended. Bowel sounds present. Neuro: A&O x3 but wifty at times. No focal neurological deficits. Results & Data Results & Data Vital Signs (Past 12 Hours) Vital Signs Temp Pulse Pulse Resp BP BP Pulse Ox 01/20/25 08:02 65 01/20/25 07:49 98.1 F 72 18 121/78 98 01/20/25 03:16 97.9 F 59 L 18 118/76 97 01/19/25 22:37 97.9 F 64 18 108/58 L 95 01/19/25 22:17 65 O2 Del Method 01/20/25 08:02 01/20/25 07:49 Room Air 01/20/25 03:16 Room Air 01/19/25 22:37 Room Air 01/19/25 22:17 Laboratory Results Reviewed CBC Reviewed BMP, mag PG Care Time/CCT Total # of Minutes Spent Total Time Spent with Patient: Total time spent is greater than 50% in coordination of care (as documented) at patient's floor/unit and/or counseling patient: Coding Level of Care Code None Diagnoses Syncope and collapse R55 Status post placement of cardiac pacemaker Z95.0 Hypertension I10 Dementia F03.90 Renal insufficiency N28.9
[2025-01-20] MEDS: LANTUS PER UNIT CHARGE SC SCH (09:07)
[2025-01-20] MEDS: MAGNESIUM OXIDE 400 MG TAB PO ONE (09:57)
[2025-01-20] MEDS: MAGNESIUM SULFATE / D5W 1 GM/100 ML BAG IV SCH (09:57)
--- NOTE | 2025-01-20 10:34 | Pharmacy Report ---
Pharmacy Glycemic Short Note 2 - Date of Service January 20, 2025 - Glycemic Short BSG Results (Last 24 hours): 01/19/25 01/19/25 01/19/25 11:44 16:13 19:47 Glucose POC Glucose 119 H 77 209 H 01/20/25 01/20/25 05:35 07:18 Glucose 147 H POC Glucose 161 H OUTPATIENT ANTIDIABETIC REGIMEN: * Lantus 18 units SC BID * Metformin 500 mg PO daily HbA1c: 6.6% (01/15/25) ASSESSMENT: 01/20 * Alice received 15 units of insulin yesterday, 8 of which were basal. BSGs were 183-524-71-209 mg/dL. * Fasting BSG was 161 mg/dL this AM. Will increase basal to 10 units today. * Loosening Novolog given trend down in postprandials yesterday. No stressors. 01/19 * Stressors stable * Random BSG elevated as compared to yesterday, which prompted increase in Lantu s. Then POC BSG however was stable from yesterday AM. Slight increase in Lantus by 4 units today reasonable - will monitor/adjust tomorrow based on trend in BSG's * Post-prandial BSG's yesterday in goal range except lunch. Lunch BSG today in goal range despite no changes. Will keep Novolog as-is. 01/18 * BSG's with notable trend up, coinciding precisely with when the patient was ordered a diet yesterday * Will add back on Lantus, but conservatively given longstanding recent history of BSG's below goal * Will leave Novolog parameters as-is for now as trend is difficult to determine - no CHO charted with breakfast/lunch although the insulin amounts administered suggest covered CHO ~40g per meal. 01/17 * NPO for possible pacemaker today * BSG's below goal for most of the day yesterday. Increased slightly at dinner so low-dose Lantus was adminsitered per parameters. BSG below goal again this AM. No hypoglycemic episodes. * Will hold Lantus and only adminsiter if BSG's rise above 140 mg/dL. If administered, will do so at a reduced dose * No change to Novolog - only 2 units administered yesterday evening to cover CHO intake. Insufficient data to determine if adjustments are indicated. 01/16 * BSG 84 mg/dL on labs this morning, basal held this morning, will set loose scale for PM * Continues to NPO- will continue with current novolog parameters 01/15 * is a 79 year old female who presented to ED on 01/14/25 following multiple syncopal episodes * Initial insulin regimen ordered by hospitalist included Lantus 14 units SC BID (received 2 doses), Novolog CF of 25 and carb ratio of 10, and metformin 500 mg PO daily * Pharmacy consulted for glycemic management on hospital day 1, initial changes: * Metformin discontinued * Basal insulin discontinued * Novolog loosened * Blood sugars of 100 and 106 mg/dL today - will hold off on further basal insulin today PLAN FOR INPATIENT GLYCEMIC CONTROL: * Hold outpatient oral diabetes medications * Basal insulin * Lantus 10 units SC AM * Bolus insulin * NovoLog per scale ACHS or Q6hrs while NPO * Goal Range: Low 110 mg/dL - High 140 mg/dL * Correction Factor: 45 mg/dL/unit * Nutritional / Prandial insulin per carb ratio of 1 unit per 15 grams CHO consumed
--- NOTE | 2025-01-20 14:01 | Discharge Summary ---
Discharge Summary Date of Service January 20, 2025 Principal Dx & Hospital Course #1 = Principal Diagnosis (1) Syncope and collapse: (2) Status post placement of cardiac pacemaker: (3) Hypertension: (4) Dementia: (5) Renal insufficiency: Plan Patient is a 79-year-old female with past medical history including dementia, iron deficiency, diabetes mellitus, hypertension, GERD, and hyperlipidemia. She presents to the emergency department on 01/14/2025 after having 2 syncopal episodes at a family reunion and 1 episode en route to the hospital. While in the emergency department she has had heart rates in the 30s to 50s. CXR ne gative. EKG with sinus bradycardia. Echo with EF 55-60%, left ventricle is normal size, normal left ventricle wall thickness, left ventricular wall motion is normal, grade 1 diastolic dysfunction, mild aortic valve sclerosis without significant aortic valve stenosis. #Syncope & Collapse - with 3 episodes of syncope on 01/14. Now with permanent pacemaker placed by Dr. Ruiz 01/17. Can follow-up with [facility] (Dr. Adrian Larson: [phone]) - HR paced in 60s - Orthostatic VS negative - Continue metoprolol succinate 50 mg daily - Continue to monitor on telemetry - PT/OT recommended inpatient rehab #Renal insufficiency, possible JOSELIN - Unknown baseline. s/p IVF - Creatinine 1.52 on admission, has remained around the same throughout her hospitalization - Lisinopril on hold, BP has been well-controlled without it. Consider discontinuing on discharge from [facility] #Hypomagnesemia - s/p IV and PO repletion - Started daily mag supplement but mag remains low at 1.5, increased dose of mag-oxide to 800 mg BID - continue - Repleted with 2 bags IV mag on day of discharge - Discontinued PPI and started Pepcid 10 mg once daily in its place (renally dose) - continue - If remains refractory, consider 24 hour urine collection to look for renal wasting #Yeast infection under left breast - Topical nystatin powder as needed to affected skin folds #Type 2 Diabetes - A1c 01/15: 6.6% - on 18 units Lantus BID & Metformin outpatient. - Hold glargine + metformin while inpatient - Pharmacy consulted to aide with glycemic needs #Dementia- Continue donepezil DVT prophylaxis: SCD's Code: full Dispo: discharged to [facility] 01/20 Notes For Next Care Provider Consider 24 hour urine collection to look for renal wasting if hypomagnesemia is refractory Consider discontinuing lisinopril Medication Changes From Visit Hold lisinopril Discontinued PPI Started Pepcid Started mag oxide Admission HPI Per Admitting Provider Patient is a 79-year-old female with past medical history including dementia, iron deficiency, diabetes mellitus, hypertension, GERD, and hyperlipidemia. She presents to the emergency department after having 2 syncopal episodes at a family reunion this afternoon, and 1 episode en route to the hospital. While in the emergency department she has had heart rates in the 30s to 50s. She did take her dosing of metoprolol succinate 50 mg every morning this morning. It is unknown if she has had previous episodes of syncope, however, family was with her today, reports this is the first that they are aware of. Discharge Exam General: No acute distress, nondiaphoretic, well-developed, well-nourished. Skin: Warm, dry. No peripheral edema noted. Yeast infection under left breast greatly improved. Cardiac: Regular rate and rhythm without murmurs gallops or rubs. Dressing over pacemaker site clean, dry, intact. Pulm: Clear to auscultation bilaterally without wheezes, rales or rhonchi. Normal respiratory effort. 98% on room air. Abdominal: Soft, nontender, nondistended. Bowel sounds present. Neuro: A&O x3 but wifty at times. No focal neurological deficits. Discharge Plan Discharge Items Patient Disposition: Transfer Inpatient Rehab Fac Reason For Visit: SYNCOPE, BRADYCARDIA, RENAL INSUFFICIENCY Discharge Diagnosis: Syncope, s/p pacemaker placement Condition on Discharge: Fair Activity: Per Instructions section Non-emergency contact: Primary Care Provider and Manager [employer] Call non-emergency contact if: you have any medication questions and your symptoms worsen Follow-up/Referrals: Vishnu Ruiz MD [Physician] - 01/20/25 11:00 am Manas Myers II, PA-C [Primary Care Provider] - (Follow-up in 1-2 weeks) Diet: Carb Consistent or DM2 and Heart Healthy Addtl Attending Provider Instructions: FOR ENCOMPASS: Alice was admitted to the hospital after 3 syncopal episodes on 01/14. She had a permanent pacemaker placed on 7/15. Unknown baseline creatinine, creatinine on admission 1.52. Her lisinopril has been held throughout her hospitalization here, and her BP remains well- controlled. Continue to monitor her BP while holding this medication and consider discontinuing it on discharge. Additionally, she has had refractory hypomagnesemia despite oral and IV repletion. Her PPI was discontinued and she was started on Pepcid 10 mg daily (renally dosed) instead. She was repleted with 1 g IV mag x 2 on day of discharge, 01/20. Her oral supplement was also increased to 800 mg BID this morning, 01/20. She is to follow-up with Dr. Adrian Larson ([phone]) 7-10 days after di scharandrey. She should follow-up with her PCP in 1-2 weeks. Addtl [employer] Provider Instructions: ACTIVITY RECOMMENDATIONS: * Do not raise affected arm over head for 2 weeks. SPECIAL CARE INSTRUCTIONS: * If bleeding occurs, apply direct pressure to area for 5 minutes. * Call your doctor if you have severe pain, fever, drainage or bleeding at site. * Keep dressing on and dry for 48 hours then remove. * Keep any scheduled doctor's appointment. * Implant Card - hand held device with website information given. SKIN IRRITATION: * You may experience some redness and/or swelling in the area where radiation was administered. If any skin irritation occurs, please contact your family physician. FOLLOW UP VISIT: Keep any scheduled doctor appointments. Pending Studies at Discharge: No Stand-Alone Forms: My [facility] Skilled Items Patient informed of condition?: Yes DNR: No Discharge Level of Care: Acute rehab Communicable Disease: No Discharge Prognosis: Stable Lines: None Urinary Catheter: No Medications and DC Order Prescriptions: New nystatin [Nystop] 100,000 unit/gram Powder 1 applic EXT PRN PRN (Reason: Affected skin folds) Qty: 15 0RF famotidine 10 mg Tablet 10 mg PO DAILY Qty: 30 0RF magnesium oxide 400 mg (241.3 mg magnesium) Tablet 800 mg PO BID Qty: 60 0RF Continued metformin 500 mg tablet 500 mg PO DAILY Rx Instructions: PER PT "ONLY TAKE 1 TAB DAILY". donepezil 5 mg tablet 5 mg PO HS Rx Instructions: PT UNSURE IF TAKING THIS MED. PER PT "DON'T TAKE ANYTHING AT HS, IF I TAKE IT, IT WOULD BE DURING THE DAY". metoprolol succinate 50 mg tablet extended release 24 hr 50 mg PO DAILY simvastatin 10 mg tablet 10 mg PO DAILY ferrous sulfate 325 mg (65 mg iron) tablet 325 mg PO DAILY Rx Instructions: PER PT "ONLY TAKE ONCE A DAY". ibuprofen 200 mg Tablet 400 mg PO Q6H PRN (Reason: Pain) folic acid 1 mg tablet 1 mg PO DAILY insulin glargine [Lantus Solostar U-100 Insulin] 100 unit/mL (3 mL) insulin pen 18 unit SUBCUT BID Held lisinopril 10 mg tablet 10 mg PO DAILY Hold Instructions: Provider's Order Discontinued omeprazole 40 mg capsule,delayed release(DR/EC) 40 mg PO DAILY Discharge Orders: Discharge Order (Routine); Ordered 01/20/25 Ordered By: Nereida Ureña/Other Patient Handouts: Managing Type 2 Diabetes Admission Data Admit Date/Time: 01/14/25 16:01 Attending Provider: Bayron Kelly Admit Provider: Gianluca Ferraro Primary Care Provider: Manas Myers II Other Providers: Gianluca Ferraro; Sherie Wright; Vishnu Ruiz Other Interventions: Discharge Summary Assessment (RN) Last Done: 01/20/25 11:00 Hospital Stay Data Consultations 01/14/25 15:34 ED Decision to Admit Stat 01/14/25 15:45 Consult Cardiology Stat 01/16/25 06:34 Consult Cardiac Electrophysiology Routine Procedures Performed Operation Date: 01/17/25 13:00 Actual Procedures p Pacemaker Insertion - Vishnu Ruiz MD Diagnostic Imagining Performed Chest X-Ray 01/14/25 14:38 Chest radiograph, one view History: Chest pain Comparison: None Findings: Single AP view of the chest performed. No focal consolidation or pleural effusion. No pneumothorax. The cardiomediastinal silhouette is within normal limits. Normal pulmonary vascularity. No evidence for lymphadenopathy. No visualized bony or soft tissue abnormality. Impression: Normal chest radiograph Electronically signed by Markie Baez 01-14-2025 3:16 PM Chest X-Ray 01/18/25 07:00 EXAM: XR chest 2V PA/lateral CLINICAL HISTORY: EXACT TIME ORDERED. Evaluate for pneumothorax. TECHNIQUE: X-ray images of the chest were obtained in posteroanterior (PA) and lateral projections. COMPARISON: No prior studies available for comparison. FINDINGS: Pulmonary Parenchyma: No evidence of consolidation, collapse, or focal opacities. No pulmonary nodules identified. No evidence of pleural effusion or pleural thickening. Heart and Mediastinum: Heart size and shape are normal. No mediastinal widening or masses. No hilar or mediastinal lymphadenopathy. Bony Thorax: Bony thorax appears intact without fractures or deformities. Soft Tissues: The left-sided pacemaker was noted, with leads noted in situ in the right atrium and right ventricle Soft tissues overlying the chest wall are unremarkable. IMPRESSION: 1. No acute cardiopulmonary abnormalities identified. 2. The left-sided pacemaker was noted. Electronically signed by Jesse Mirza 01-18-2025 07:14 AM Pending Results Patient Have Any Pending Studies at Discharge: No Discharge Instructions Given to Patient (Per Discharging Provider) FOR ENCOMPASS: Alice was admitted to the hospital after 3 syncopal episodes on 01/14. She had a permanent pacemaker placed on 01/17. Unknown baseline creatinine, creatinine on admission 1.52. Her lisinopril has been held throughout her hospitalization here, and her BP remains well-controll ed. Continue to monitor her BP while holding this medication and consider discontinuing it on discharge. Additionally, she has had refractory hypomagnesemia despite oral and IV repletion. Her PPI was discontinued and she was started on Pepcid 10 mg daily (renally dosed) instead. She was repleted with 1 g IV mag x 2 on day of discharge, 01/20. Her oral supplement was also increased to 800 mg BID this morning, 01/20. She is to follow-up with Dr. Adrian Larson ([phone]) 7-10 days after discharge. She should follow-up with her PCP in 1-2 weeks. Total Time Total Time Spent Total Time Spent (In Minutes): Greater than 30 minutes spent completing this discharge process including direct patient care, medication reconciliation, documentation, review of labs and images, and coordination of care. Coding Level of Care Code 87097 INP/OBS DISCH >30 MIN Diagnoses Syncope and collapse R55 Status post placement of cardiac pacemaker Z95.0 Hypertension I10 Dementia F03.90 Renal insufficiency N28.9
[2025-01-20] MEDS ORDERED: MAGNESIUM OXIDE 400 MG TAB PO SCH (21:00)
== END 2025-01-20 14:59 | DRG 243 ==
LOC: ED 14:29 → 2E 16:01 → SUATTDRO 16:01 → 2E 17:38